=== PATIENT | female | born 1935 | race Caucasian/White ===

== ENCOUNTER 2017-06-28 07:29 | Emergency (ER) | payer OTHER ==
[~2017-06-28] VITALS: Ht 165.1 cm; Wt 65.0 kg
[~2017-06-28 07:29] MED LIST: ASPI81TA82 PO; COZA50TA PO; DONE5TAB14 PO; FISHOIL XX; HYDR-3533 PO; MEMA5 PO; MULT-65 PO; PANT20 PO; TRAM50 PO; XANA0.5T PO
[2017-06-28 07:31] VITALS: BP 198/88; PULSE 78; RESP 20; TEMP 97.3; O2SAT 97
[2017-06-28 07:53] VITALS: BP 178/88; PULSE 77; RESP 20; TEMP 97.9; O2SAT 98
[2017-06-28] MEDS ORDERED: ASPIRIN 81 MG CHEW TAB PO ONE (08:00)
[2017-06-28] MEDS ORDERED: SODIUM CHLORIDE 0.9% FLUSH 10 ML FLUSH IVF PRN (08:00)
[2017-06-28 08:21] VITALS: RESP 20; O2SAT 97
[2017-06-28 08:28] LABS: AUTOMATED NEUTROPHIL # 7.8 TH/MM3 (1.8-7.7); BASOPHIL % 0.5 % (0.0-2.0); EOSINOPHIL # 0.4 TH/MM3 (0-0.4); EOSINOPHIL % 3.9 % (0.0-4.0); HEMATOCRIT 38.3 % (35.0-46.0); HEMO FLAGS DIFF FINAL; LYMPH % 11.7 % (9.0-44.0); LYMPHOCYTE # 1.2 TH/MM3 (1.0-4.8); MEAN CELL VOLUME 92.7 FL (80.0-100.0); MEAN CORPUSCULAR HEMOGLOBIN 30.5 PG (27.0-34.0); MEAN CORPUSCULAR HGB CONC 32.9 % (32.0-36.0); MONO % 8.3 % (0.0-8.0); NEUT % 75.6 % (16.0-70.0); PLATELET COUNT 236 TH/MM3 (150-450); RED BLOOD COUNT 4.13 MIL/MM3 (4.00-5.30); RED CELL DISTRIBUTION WIDTH 13.3 % (11.6-17.2); WHITE BLOOD COUNT 10.3 TH/MM3 (4.0-11.0)
--- NOTE | 2017-06-28 08:28 | PD ---
HPI . Chest pain Chief Complaint: Chest Pain Time Seen by Provider: 08:00 Travel History International Travel<30 days: No Contact w/Intl Traveler<30days: No Traveled to known affect area: No History of Present Illness HPI This patient presents with a chief complaint of chest pain which was noted upon awakening this morning. This patient has dementia. Pain from the patient and from her . He states that she awaken this morning with chest pain and was crying. He subsequently brought her here for evaluation. The reports that it obviously hurts for her to move. Further history is not available because of her dementia. PFSH Past Medical History Hx Anticoagulant Therapy: Yes (BABY ASPIRING EVERY OTHER DAY (LAST 06/27)) Alzheimer's Disease: Yes Arthritis: Yes Heart Rhythm Problems: No Cancer: Yes (Breast) Cardiac Catheterization: No Cardiovascular Problems: No High Cholesterol: Yes Chest Pain: No Congestive Heart Failure: No Diabetes: No Endocrine: No Genitourinary: No Hypertension: Yes Musculoskeletal: Yes Neurologic: Yes (EARLY ONSET DEMENTIA) Reproductive: No Respiratory: No Radiation Therapy: Yes (Tx for breast ca, many yrs ago. ) Thyroid Disease: No ?: Not Menopausal: Yes Past Surgical History Appendectomy: Yes Cholecystectomy: Yes Coronary Artery Bypass Graft: No Gynecologic Surgery: Yes (LEFT LUMPECTOMY) Hysterectomy: Yes Pacemaker: No Other Surgery: Yes (LEFT LUMPECTOMY ) Social History Alcohol Use: No Tobacco Use: No Substance Use: No Allergies-Medications (Allergen,Severity, Reaction): Coded Allergies: Influenza Virus Vaccines (Unverified Allergy, Severe, 06/28/17) nefazodone (Unverified Allergy, Severe, SOB, 06/28/17) Reported Meds & Prescriptions Reported Meds & Active Scripts Active Lortab 5 mg/325 mg (Hydrocodone/Acetaminophen 5 mg/325 mg) 1 Tab 1 Tab PO Q6H PRN Reported Protonix (Pantoprazole Sodium) 20 Mg Tabdr 20 Mg PO BID Xanax 0.5 mg (Alprazolam) Alprazolam 0.5 mg Tab 1 Tab PO DAILY Donepezil 5 Mg Tab 5 Mg PO DAILY Multi-Vitamin Daily (Multivitamins) Daily Tab 1 PO Fish Oil Oil 1 Dose XX Ultram (Tramadol HCl) 50 Mg Tab 50 Mg PO DAILYPRN PRN FOR PAIN Cozaar (Losartan Potassium) 50 Mg Tab 25 Mg PO DAILY Namenda (Memantine) 5 Mg Tab 0 PO UNKNOWN DOSE Aspir-81 (Aspirin) 81 Mg Tab 81 Mg PO Review of Systems ROS Limitations: Poor Historian Physical Exam Narrative GENERAL: The patient is a pleasantly demented elderly woman who is smiling and in no distress. SKIN: Warm and dry. HEAD: Atraumatic. Normocephalic. EYES: Pupils equal and round. Extraocular movements are intact. ENT: No nasal bleeding or discharge. Mucous membranes pink and moist. NECK: Trachea midline. Neck is supple. CARDIOVASCULAR: Regular rate and rhythm. Heart sounds normal. RESPIRATORY: No accessory muscle use. Lungs are clear with full air movement throughout. Positive chest wall tenderness. GASTROINTESTINAL: Abdomen soft, non-tender, nondistended. MUSCULOSKELETAL: No obvious deformities. No edema. NEUROLOGICAL: Awake and alert. No obvious cranial nerve deficits. Motor grossly within normal limits. Normal speech. PSYCHIATRIC: Unable to assess. Data Data Last Documented VS Vital Signs Date Time Temp Pulse Resp B/P (MAP) Pulse Ox O2 Delivery O2 Flow Rate FiO2 06/28/17 08:21 20 97 Room Air 06/28/17 07:53 97.9 77 Orders Orders Electrocardiogram (06/28/17 08:00) Basic Metabolic Panel (Bmp) (06/28/17 08:00) Ckmb (Isoenzyme) Profile (06/28/17 08:00) Complete Blood Count With Diff (06/28/17 08:00) Magnesium (Mg) (06/28/17 08:00) Prothrombin Time / Inr (Pt) (06/28/17 08:00) Act Partial Throm Time (Ptt) (06/28/17 08:00) Troponin I (06/28/17 08:00) Chest, Single Ap (06/28/17 08:00) Ecg Monitoring (06/28/17 08:00) Iv Access Insert/Monitor (06/28/17 08:00) Oximetry (06/28/17 08:00) Aspirin Chew (Aspirin Chew) (06/28/17 08:00) Sodium Chloride 0.9% Flush (Ns Flush) (06/28/17 08:00) CKMB (06/28/17 08:12) CKMB% (06/28/17 08:12) Labs Laboratory Tests Test 06/28/17 08:12 White Blood Count 10.3 TH/MM3 Red Blood Count 4.13 MIL/MM3 Hemoglobin 12.6 GM/DL Hematocrit 38.3 % Mean Corpuscular Volume 92.7 FL Mean Corpuscular Hemoglobin 30.5 PG Mean Corpuscular Hemoglobin Concent 32.9 % Red Cell Distribution Width 13.3 % Platelet Count 236 TH/MM3 Mean Platelet Volume 7.8 FL Neutrophils (%) (Auto) 75.6 % Lymphocytes (%) (Auto) 11.7 % Monocytes (%) (Auto) 8.3 % Eosinophils (%) (Auto) 3.9 % Basophils (%) (Auto) 0.5 % Neutrophils # (Auto) 7.8 TH/MM3 Lymphocytes # (Auto) 1.2 TH/MM3 Monocytes # (Auto) 0.9 TH/MM3 Eosinophils # (Auto) 0.4 TH/MM3 Basophils # (Auto) 0.0 TH/MM3 CBC Comment DIFF FINAL Differential Comment Prothrombin Time 10.2 SEC Prothromb Time International Ratio 0.9 RATIO Activated Partial Thromboplast Time 29.4 SEC Blood Urea Nitrogen 12 MG/DL Creatinine 0.80 MG/DL Random Glucose 101 MG/DL Calcium Level 8.8 MG/DL Magnesium Level 2.2 MG/DL Sodium Level 140 MEQ/L Potassium Level 4.1 MEQ/L Chloride Level 105 MEQ/L Carbon Dioxide Level 28.4 MEQ/L Anion Gap 7 MEQ/L Estimat Glomerular Filtration Rate 69 ML/MIN Total Creatine Kinase 119 U/L Creatine Kinase MB 1.8 NG/ML Troponin I LESS THAN 0.02 NG/ML MDM Medical Decision Making Medical Screen Exam Complete: Yes Emergency Medical Condition: Yes Medical Record Reviewed: Yes (she had an exercise stress test done in 2011 which was negative. Her medical history is significant for dementia, breast cancer, hypertension and hyperlipidemia.) Interpretation(s) Her EKG shows a sinus rhythm with a rate of 71. No ST segment elevation or depression. Her EKG is unchanged from previous. Differential Diagnosis Differential diagnosis of chest pain includes but is not limited to musculoskeletal pain, pulmonary embolism, acute coronary syndrome, pneumonia, pleurisy Narrative Course This patient presents with chest pain. She has pain with movement and her pain is reproducible. I have a low index of suspicion for ACS. CBC & BMP Diagram 06/28/17 08:12 Calcium Level 8.8, Magnesium Level 2.2 Cardiac enzymes are negative. This patient clearly has chest wall pain. She will be discharged home. I will have her tried Tylenol for pain. Diagnosis Primary Impression: Chest wall pain Patient Instructions: General Instructions Additional Instructions: Tylenol as needed for pain Disposition: 01 DISCHARGE HOME Condition: Stable Juli Perkins MD Jun 28, 2017 08:28
[2017-06-28 08:38] LABS: APTT (PATIENT) 29.4 SEC (24.3-30.1); INTERNATIONAL NORMALIZED RATIO 0.9 RATIO; PROTHROMBIN TIME - PATIENT 10.2 SEC (9.8-11.6)
[2017-06-28 08:43] LABS: ANION GAP 7 MEQ/L (5-15); BICARBONATE 28.4 MEQ/L (21.0-32.0); BLOOD UREA NITROGEN 12 MG/DL (7-18); CHLORIDE 105 MEQ/L (98-107); GLOMERULAR FILTRATION RATE 69 ML/MIN (>89); MAGNESIUM 2.2 MG/DL (1.5-2.5); POTASSIUM 4.1 MEQ/L (3.5-5.1); SODIUM (NA) 140 MEQ/L (136-145)
--- NOTE | 2017-06-28 08:43 | RADRPT ---
EXAM DATE/TIME: 06/28/2017 08:26 [facility] COMPARISON: CHEST SINGLE AP, December 01, 2014, 18:04. INDICATIONS : Chest pains for 24 hours MEDICAL HISTORY : None. SURGICAL HISTORY : None. ENCOUNTER: Initial ACUITY: 1 day PAIN SCORE: 5/10 LOCATION: Bilateral chest FINDINGS: A single view of the chest demonstrates mild bibasilar infiltrates.. The cardiomediastinal contours are unremarkable stable. Osseous structures are intact. CONCLUSION: Mild bibasilar infiltrates. Jose Francisco Pastor MD on June 28, 2017 at 8:41 Board Certified Radiologist. This report was verified electronically.
[2017-06-28 08:47] LABS: CREATINE KINASE 119 U/L (26-192)
[2017-06-28 09:01] LABS: CKMB 1.8 NG/ML (0.5-3.6)
--- NOTE | 2017-06-28 15:30 | EKG ---
Date Performed: 06/28/2017 Time Performed: 07:59:06 PTAGE: 82 years EKG: Sinus rhythm MINIMAL VOLTAGE CRITERIA FOR LVH, CONSIDER NORMAL VARIANT BORDERLINE ECG PREVIOUS TRACING : 12/01/2014 17.31 Compared to prior tracing no significant change DOCTOR: Haris Mcintosh Interpretating Date/Time 06/28/2017 15:29:21
[2017-06-29] MEDS ORDERED: ASPI81CH CHEW (08:28)
[2017-06-29] MEDS ORDERED: PANT20TA2 PO (08:28)
[2017-06-29] MEDS ORDERED: LOSA25TA PO (08:28)
[2017-06-29] MEDS ORDERED: DONE5TAB7 PO (08:28)
[2017-06-29] MEDS ORDERED: ALPR.5 PO (08:28)
[2017-06-29] MEDS ORDERED: ZANT150T2 PO (08:28)
[2017-06-29] MEDS ORDERED: MEMA1TAB2 PO (08:28)
[2017-06-29] MEDS ORDERED: TRAM50TA PO (09:53)
== END 2017-06-28 09:56 | disposition home or self-care (01) ==
LOC: NEPE 07:29
DX: R07.89 Other chest pain (principal); I10 Essential (primary) hypertension; G30.9 Alzheimer's disease, unspecified; F02.80 Dementia in other diseases classified elsewhere, unspecified severity, without behavioral disturbance, psychotic disturbance, mood disturbance, and anxiety; Z79.899 Other long term (current) drug therapy; Z85.3 Personal history of malignant neoplasm of breast
CPT/HCPCS: 71010; 80048; 82550; 82552; 83735; 84484; 85025; 85610; 85730; 93005; 99285

== ENCOUNTER 2017-06-29 07:47 | Emergency (ER) | payer OTHER ==
[~2017-06-29] VITALS: Ht 162.6 cm; Wt 61.5 kg
[2017-06-29 07:50] VITALS: BP 201/91; PULSE 92; RESP 20; TEMP 97.8; O2SAT 97
[2017-06-29] MEDS ORDERED: ALPR.5 PO (08:28)
[2017-06-29] MEDS ORDERED: ASPI81CH CHEW (08:28)
[2017-06-29] MEDS ORDERED: DONE5TAB7 PO (08:28)
[2017-06-29] MEDS ORDERED: PANT20TA2 PO (08:28)
[2017-06-29] MEDS ORDERED: LOSA25TA PO (08:28)
[2017-06-29] MEDS ORDERED: ZANT150T2 PO (08:28)
[2017-06-29] MEDS ORDERED: MEMA1TAB2 PO (08:28)
--- NOTE | 2017-06-29 08:51 | RADRPT ---
EXAM DATE/TIME: 06/29/2017 08:35 [facility] COMPARISON: CHEST SINGLE AP, June 28, 2017, 8:26. INDICATIONS : Thoracic spine pain, denies injury MEDICAL HISTORY : None. SURGICAL HISTORY : None. ENCOUNTER: Initial ACUITY: 1 day PAIN SCORE: Non-responsive. LOCATION: Thoracic spine FINDINGS: There is diffuse osteopenia present. There is normal alignment of the thoracic vertebral bodies. Eh tebral body height is maintained. No evidence of fracture or subluxation. Pedicles are intact at al l levels. The paravertebral reflections are not thickened. CONCLUSION: Diffuse osteopenia. No visualized fracture.. Elsie Smith MD on June 29, 2017 at 8:49 Board Certified Radiologist. This report was verified electronically.
--- NOTE | 2017-06-29 09:00 | RADRPT ---
EXAM DATE/TIME: 06/29/2017 08:43 [facility] COMPARISON: CT ABDOMEN & PELVIS W/O CONTRAST, November 24, 2012, 17:40. INDICATIONS : Left flank pain today. ORAL CONTRAST: No oral contrast ingested. RADIATION DOSE: 11.32 CTDIvol (mGy) MEDICAL HISTORY : Carcinoma, breast. Dementia. SURGICAL HISTORY : Hysterectomy. Cholecystectomy.Appendectomy. ENCOUNTER: Initial ACUITY: 1 day PAIN SCALE: 7/10 LOCATION: Left flank TECHNIQUE: Volumetric scanning of the abdomen and pelvis was performed. Using automated exposure control and ad justment of the mA and/or kV according to patient size, radiation dose was kept as low as reasonably achievable to obtain optimal diagnostic quality images. DICOM format image data is available electro nically for review and comparison. FINDINGS: LOWER LUNGS: There is a small left-sided pleural effusion present. Moderate bilateral patchy airspace opacificatio n consistent with likely dependent atelectasis. The heart size is mildly enlarged, stable. There is a large hiatal hernia present. LIVER: Homogeneous density without lesion. There is no dilation of the biliary tree the patient is status p ost prior cholecystectomy. SPLEEN: Normal size without lesion. PANCREAS: Within normal limits. KIDNEYS: The kidneys are significant for bilateral large parapelvic cysts. There is a large 1.4 cm stone ident ified at the left UPJ. This has increased in size as compared to the prior exam. The renal cortex silverio ears normal in thickness and symmetric to that seen on the right. There is a punctate smaller stone i dentified in the upper pole of the left kidney. The ureters are normal throughout their course withou t distal obstructing stone. ADRENAL GLANDS: Within normal limits. VASCULAR: Scattered atherosclerosis. No evidence of hemorrhage. BOWEL/MESENTERY: The stomach, small bowel, and colon demonstrate no acute abnormality. There is no free intraperitone al air or fluid. ABDOMINAL WALL: Within normal limits. RETROPERITONEUM: There is no lymphadenopathy. BLADDER: No wall thickening or mass. REPRODUCTIVE: The patient is status post prior hysterectomy. INGUINAL: There is no lymphadenopathy or hernia. MUSCULOSKELETAL: Scoliosis and multilevel degenerative changes of the lumbar spine. CONCLUSION: 1.There is a new small left-sided pleural effusion and patchy airspace opacities within the bilateral lower lobes suggestive of significant dependent atelectasis versus early air space consolidation sec ondary to pneumonia. 2. There is a large hiatal hernia present. 3. Enlarging left renal stone at the level of the UPJ. Given the appearance of the left kidney this m ay represent a chronic left UPJ obstruction Elsie Smith MD on June 29, 2017 at 8:51 Board Certified Radiologist. This report was verified electronically.
[2017-06-29 09:37] LABS: BLOOD, URINE MOD (NEG); GLUCOSE,URINE NEG (NEG); KETONE, URINE 10 mg/dL (NEG); MUCUS URINE FEW /lpf (OCC); NITRITE,URINE NEG (NEG); PH, URINE 5.5 (5.0-8.5); URINE COLOR YELLOW (YELLW/STRAW)
[2017-06-29 09:40] LABS: COMMENT (UR) CATH-CULT NOT IND; CULTURE IF INDICATED CATH CULTURE NOT IND
[2017-06-29] MEDS ORDERED: TRAM50TA PO (09:53)
--- NOTE | 2017-06-29 09:53 | PD ---
HPI Chief Complaint: Flank/Kidney Pain Time Seen by Provider: 08:24 Travel History International Travel<30 days: No Contact w/Intl Traveler<30days: No Traveled to known affect area: No History of Present Illness HPI This is an 82-year-old female who presents to the emergency department with 2 days of intermittent left-sided flank pain, sharp, stabbing, moderate severity waking her up in the middle the night with her finding her in tears. She has not had any fevers or chills, vomiting or diarrhea. She has dementia so most of her history is obtained from her . She has a history of kidney stones. Her says that back in 2012 she had a kidney stone and she had a stent put in and then she had lithotripsy. He is not sure what the result of all this procedures were. She follows with Dr. Castaneda currently. PFSH Past Medical History Hx Anticoagulant Therapy: Yes (BABY ASPIRING EVERY OTHER DAY (LAST 06/27)) Alzheimer's Disease: Yes Arthritis: Yes Heart Rhythm Problems: No Cancer: Yes (Breast) Cardiac Catheterization: No Cardiovascular Problems: No High Cholesterol: Yes Chest Pain: No Congestive Heart Failure: No Diabetes: Yes Patient Takes Glucophage: No Endocrine: No Genitourinary: No Hypertension: Yes Musculoskeletal: Yes Neurologic: Yes (EARLY ONSET DEMENTIA) Reproductive: No Respiratory: No Radiation Therapy: Yes (Tx for breast ca, many yrs ago. ) Thyroid Disease: No Menopausal: Yes Past Surgical History Appendectomy: Yes Cholecystectomy: Yes Coronary Artery Bypass Graft: No Gynecologic Surgery: Yes (LEFT LUMPECTOMY) Hysterectomy: Yes Pacemaker: No Other Surgery: Yes (LEFT LUMPECTOMY ) Social History Alcohol Use: No Tobacco Use: No Substance Use: No Allergies-Medications (Allergen,Severity, Reaction): Coded Allergies: Influenza Virus Vaccines (Unverified Allergy, Severe, 06/29/17) nefazodone (Unverified Allergy, Severe, SOB, 06/29/17) Reported Meds & Prescriptions Reported Meds & Active Scripts Active Reported Zantac (Ranitidine HCl) 150 Mg Tab 150 Mg PO DAILY Xanax (Alprazolam) 0.5 Mg Tab 0.5 Mg PO Q8H PRN Pantoprazole (Pantoprazole Sodium) 20 Mg Tab 20 Mg PO DAILY Aspirin 81 Mg Chew 81 Mg CHEW DAILY Donepezil 5 Mg Tab 5 Mg PO HS Memantine 10 Mg Tab 10 Mg PO DAILY Losartan (Losartan Potassium) 25 Mg Tab 25 Mg PO DAILY Losartan (Losartan Potassium) 25 Mg Tab 25 Mg PO DAILY Review of Systems Except as stated in HPI: all other systems reviewed are Neg Physical Exam Narrative GENERAL:Well appearing, no acute distress SKIN: Focused skin assessment warm and dry. HEAD: Atraumatic. Normocephalic. EYES: Pupils equal and round. No injection or drainage. ENT: Moist mucous membranes NECK: Trachea midline. CARDIOVASCULAR: Regular rate and rhythm. No murmur appreciated. RESPIRATORY: Clear to auscultation. Breath sounds equal bilaterally. GASTROINTESTINAL: Abdomen soft, non-tender, nondistended. : Left CVA tenderness MUSCULOSKELETAL: No obvious deformities. NEUROLOGICAL: Awake and alert. No obvious cranial nerve deficits. Moving all extremities. PSYCHIATRIC: Appropriate mood and affect; insight and judgment normal. Data Data Last Documented VS Vital Signs Date Time Temp Pulse Resp B/P (MAP) Pulse Ox O2 Delivery O2 Flow Rate FiO2 06/29/17 07:50 97.8 92 20 201/91 (127) 97 Room Air Orders Orders Lipase (06/29/17 08:24) Urinalysis - C+S If Indicated (06/29/17 08:24) Cath For Specimen (06/29/17 08:24) Ct Abd/Pel W/O Iv Contrast (06/29/17 ) Spine, Thoracic-Ap/Lat/Sw(3vw) (06/29/17 ) Labs Laboratory Tests Test 06/29/17 08:15 06/29/17 09:25 Lipase 146 U/L Urine Color YELLOW Urine Turbidity CLEAR Urine pH 5.5 Urine Specific [place] 1.020 Urine Protein TRACE mg/dL Urine Glucose (UA) NEG mg/dL Urine Ketones 10 mg/dL Urine Occult Blood MOD Urine Nitrite NEG Urine Bilirubin NEG Urine Urobilinogen LESS THAN 2.0 MG/DL Urine Leukocyte Esterase TRACE Urine RBC 30 /hpf Urine WBC 5 /hpf Urine Mucus FEW /lpf Microscopic Urinalysis Comment CATH-CULT NOT IND MDM Medical Decision Making Medical Screen Exam Complete: Yes Emergency Medical Condition: Yes Interpretation(s) Afebrile, mild tachycardia, hypertensive Lipase is normal Urinalysis: 30 red blood cells Last 24 hours Impressions Thoracic Spine X-Ray 06/29/17 0000 Signed Impressions: Service Date/Time: Thursday, June 29, 2017 08:35 - CONCLUSION: Diffuse osteopenia. No visualized fracture.. Elsie Smith MD Abdomen/Pelvis CT 06/29/17 0000 Signed Impressions: Service Date/Time: Thursday, June 29, 2017 08:43 - CONCLUSION: 1.There is a new small left-sided pleural effusion and patchy airspace opacities within the bilateral lower lobes suggestive of significant dependent atelectasis versus early air space consolidation secondary to pneumonia. 2. There is a large hiatal hernia present. 3. Enlarging left renal stone at the level of the UPJ. Given the appearance of the left kidney this may represent a chronic left UPJ obstruction Elsie Smith MD Differential Diagnosis Nephrolithiasis, hydronephrosis, pyelonephritis, shingles, pneumonia Narrative Course This is an 82-year-old female who presents to the emergency department with left -sided flank pain. Back in 2012 she had a 1 cm stone at the UPJ on the left with associated hydronephrosis. At this time the patient's tells me she had a stent put in and she had lithotripsy. Today she has a 1.4 cm stone at the same location. I suspect this is the same stone but I also suspect that this is giving her more discomfort. Her pain is episodic, she has no cough or fever to suggest pneumonia. I think the hydronephrosis as the etiology of her pain. I spoke to Dr. Aguilera and he agrees she can follow-up with Dr. Castaneda as an outpatient. She appears very well in the emergency department. Patient will be discharged with pain control and was asked to call Dr. Castaneda on Friday. Diagnosis Primary Impression: Hydronephrosis with renal calculous obstruction Patient Instructions: General Instructions Additional Instructions: If you develop severe pain, inability to eat or drink, or fever return to the emergency department. Take tramadol as needed for pain. Follow up with urology as soon as possible. Med/Other Pt SpecificInfo: Prescription(s) given Scripts Tramadol (Tramadol) 50 Mg Tab 50 MG PO Q6H Y for PAIN, #15 TAB 0 Refills Prov: Kristina Jeff MD 06/29/17 Disposition: 01 DISCHARGE HOME Condition: Stable Kristina Jeff MD Jun 29, 2017 09:53
[2017-06-29 10:02] VITALS: BP 150/74; PULSE 91; RESP 18; O2SAT 95
== END 2017-06-29 10:32 | disposition home or self-care (01) ==
LOC: NEPC 07:47
DX: N13.2 Hydronephrosis with renal and ureteral calculous obstruction (principal); G30.9 Alzheimer's disease, unspecified; F02.80 Dementia in other diseases classified elsewhere, unspecified severity, without behavioral disturbance, psychotic disturbance, mood disturbance, and anxiety; I10 Essential (primary) hypertension; E11.9 Type 2 diabetes mellitus without complications; E78.00 Pure hypercholesterolemia, unspecified; M19.90 Unspecified osteoarthritis, unspecified site
CPT/HCPCS: 72072; 74176; 81001; 83690; 99284; P9612

== ENCOUNTER 2017-12-15 02:46 | Emergency (ER) | payer OTHER ==
[~2017-12-15] VITALS: Ht 162.6 cm; Wt 59.1 kg
[~2017-12-15 02:46] MED LIST changes: +ALPR.5 PO; +ASPI-516 CHEW; -ASPI81TA82 PO; -COZA50TA PO; -DONE5TAB14 PO; +DONE5TAB7 PO; -FISHOIL XX; -HYDR-3533 PO; +LOSA25TA PO; +MEMA1TAB2 PO; -MEMA5 PO; -MULT-65 PO; -PANT20 PO; +PANT20TA2 PO; -TRAM50 PO; +TRAM50TA PO; -XANA0.5T PO; +ZANT150T2 PO
[2017-12-15 02:48] VITALS: BP 215/96; PULSE 97; RESP 20; TEMP 98.2; O2SAT 100
--- NOTE | 2017-12-15 03:50 | RADRPT ---
EXAM DATE/TIME: 12/15/2017 03:31 [facility] COMPARISON: No previous studies available for comparison. INDICATIONS : Fall yesterday pain in left wrist. MEDICAL HISTORY : None. SURGICAL HISTORY : None. ENCOUNTER: Initial ACUITY: 1 day PAIN SCORE: 5/10 LOCATION: Left wrist FINDINGS: The bone density is diminished. There are degenerative changes of the thumb basal joint and scaphoid trapezium articulations. Chondrocalcinosis. CONCLUSION: No acute disease. Ronny Hartman MD on December 15, 2017 at 3:48 Board Certified Radiologist. This report was verified electronically.
--- NOTE | 2017-12-15 03:51 | RADRPT ---
EXAM DATE/TIME: 12/15/2017 03:38 [facility] COMPARISON: CT BRAIN W/O CONTRAST, July 14, 2014, 13:44. INDICATIONS : Trauma, fall. RADIATION DOSE: 29.34 CTDIvol (mGy) MEDICAL HISTORY : Hypertension. Alzheimer's. Breast cancer. SURGICAL HISTORY : Appendectomy. Cholecystectomy.Hysterectomy. ENCOUNTER: Initial ACUITY: 1 day PAIN SCALE: 2/10 LOCATION: cranial TECHNIQUE: Multiple contiguous axial images were obtained of the head. Using automated exposure control and adj ustment of the mA and/or kV according to patient size, radiation dose was kept as low as reasonably a chievable to obtain optimal diagnostic quality images. DICOM format image data is available electro nically for review and comparison. 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 No signs of acute infarct, hemorrh age or mass. Osseous structures are intact. CONCLUSION: No significant change has occurred. Ronny Hartman MD on December 15, 2017 at 3:48 Board Certified Radiologist. This report was verified electronically.
--- NOTE | 2017-12-15 03:53 | RADRPT ---
EXAM DATE/TIME: 12/15/2017 03:38 [facility] COMPARISON: No previous studies available for comparison. INDICATIONS : Trauma, fall. RADIATION DOSE: 19.91 CTDIvol (mGy) MEDICAL HISTORY : Alzheimer's Hypertension. Breast cancer. SURGICAL HISTORY : Hysterectomy. Appendectomy.Cholecystectomy. ENCOUNTER: Initial ACUITY: 1 day PAIN SCALE: 2/10 LOCATION: neck TECHNIQUE: Volumetric scanning of the cervical spine was performed. Multiplanar reconstructions in the sagittal, coronal and oblique axial planes were performed. Using automated exposure control and adjustment o f the mA and/or kV according to patient size, radiation dose was kept as low as reasonably achievable to obtain optimal diagnostic quality images. DICOM format image data is available electronically f or review and comparison. FINDINGS: Slight retrolisthesis of C4 on C5 and C5 on C6. Mild disc space narrowing and multilevel uncovertebra l hypertrophy. No prevertebral soft tissue swelling or compression deformity. Odontoid process is int act. CONCLUSION: No fractures. Ronny Hartman MD on December 15, 2017 at 3:49 Board Certified Radiologist. This report was verified electronically.
--- NOTE | 2017-12-15 03:57 | PD ---
HPI Chief Complaint: Fall Time Seen by Provider: 03:56 Travel History International Travel<30 days: No Contact w/Intl Traveler<30days: No Traveled to known affect area: No History of Present Illness HPI 82-year-old female came to the emergency room brought by her after she fell yesterday afternoon. Her found her on the floor. He did not witness the actual event but she was screaming in pain. Patient has history of Alzheimer's. Scraped her left knee. Afterwards she was able to stand up with his support and walk and he did not think of bringing her into the hospital immediately. But she has been complaining of pain in her right wrist and nursing it. He brought her in to be checked out. There was x-ray and CAT scan done prior to her arrival into the emergency room. When I went to see her the CT scan and x-ray reports were back. This pleasantly demented and does not appear to be in significant distress currently. However she is holding her left wrist with her right arm. Vital signs show some hypertension. I asked the nurse to reassess that. PFSH Past Medical History Narrative Medical List of her past medical, surgical, social and family history is reviewed from the nursing note. Hx Anticoagulant Therapy: Yes (BABY ASPIRING EVERY OTHER DAY (LAST 06/27)) Alzheimer's Disease: Yes Arthritis: Yes Heart Rhythm Problems: No Cancer: Yes (Breast) Cardiac Catheterization: No Cardiovascular Problems: No High Cholesterol: Yes Chest Pain: No Congestive Heart Failure: No Diabetes: Yes Patient Takes Glucophage: No Endocrine: No Genitourinary: No Hypertension: Yes Musculoskeletal: Yes Neurologic: Yes (EARLY ONSET DEMENTIA/alzheimers) Reproductive: No Respiratory: No Radiation Therapy: Yes (Tx for breast ca, many yrs ago. ) Thyroid Disease: No Tetanus Vaccination: Unknown Menopausal: Yes Past Surgical History Appendectomy: Yes Cholecystectomy: Yes Coronary Artery Bypass Graft: No Gynecologic Surgery: Yes (LEFT LUMPECTOMY) Hysterectomy: Yes Pacemaker: No Other Surgery: Yes (LEFT LUMPECTOMY ) Social History Alcohol Use: No Tobacco Use: No Substance Use: No Allergies-Medications (Allergen,Severity, Reaction): Coded Allergies: Influenza Virus Vaccines (Unverified Allergy, Severe, 06/29/17) nefazodone (Unverified Allergy, Severe, SOB, 06/29/17) Comments List of allergies reviewed from the nursing note. Reported Meds & Prescriptions Reported Meds & Active Scripts Active Ibuprofen 400 Mg Tab 400 Mg PO Q8H PRN Reported Multiple Vitamin 1 Tab 1 Tab PO DAILY Amlodipine (Amlodipine Besylate) 2.5 Mg Tab 2.5 Mg PO DAILY Epitol (Carbamazepine) 200 Mg Tab 200 Mg PO BID Zantac (Ranitidine HCl) 150 Mg Tab 150 Mg PO DAILY Xanax (Alprazolam) 0.5 Mg Tab 0.5 Mg PO Q8H PRN Aspirin 81 Mg Chew 81 Mg CHEW DAILY Donepezil 5 Mg Tab 5 Mg PO HS Memantine 10 Mg Tab 10 Mg PO DAILY Losartan (Losartan Potassium) 25 Mg Tab 25 Mg PO DAILY Narrative Medication List of her home medications reviewed from the nursing note. Review of Systems Except as stated in HPI: all other systems reviewed are Neg Musculoskeletal: Positive: Pain Physical Exam Narrative GENERAL: Awake, alert, pleasantly demented, elderly SKIN: Focused skin assessment warm/dry. Healing abrasion of the left knee HEAD: Atraumatic. Normocephalic. EYES: Pupils equal and round. No scleral icterus. No injection or drainage. ENT: No nasal bleeding or discharge. Mucous membranes pink and moist. NECK: Trachea midline. No JVD. CARDIOVASCULAR: Regular rate and rhythm. No murmur appreciated. RESPIRATORY: No accessory muscle use. Clear to auscultation. Breath sounds equal bilaterally. GASTROINTESTINAL: Abdomen soft, non-tender, nondistended. Hepatic and splenic margins not palpable. MUSCULOSKELETAL: Left wrist is swollen, tender to touch and decreased range of motion. No clubbing. No cyanosis. No edema. NEUROLOGICAL: Awake and alert. No obvious cranial nerve deficits. Motor grossly within normal limits. Normal speech. PSYCHIATRIC: Appropriate mood and affect; insight and judgment normal. Data Data Last Documented VS Vital Signs Date Time Temp Pulse Resp B/P (MAP) Pulse Ox O2 Delivery O2 Flow Rate FiO2 12/15/17 04:21 12/15/17 02:48 98.2 97 20 100 Orders Orders Wrist, Complete (Hht2fjs) (12/15/17 ) Ct Cerv Spine W/O Contrast (12/15/17 ) Ct Brain W/O Iv Contrast(Rout) (12/15/17 ) Splinting (12/15/17 ) Ibuprofen (Motrin) (12/15/17 04:15) Ed Discharge Order (12/15/17 04:14) Fiberglass Splint Forearm Adul (12/15/17 ) [facility] Medical Decision Making Medical Screen Exam Complete: Yes Emergency Medical Condition: Yes Medical Record Reviewed: Yes Differential Diagnosis Wrist fracture, wrist contusion Narrative Course 4:11 AM the x-ray and the CAT scan's were read negative by the radiologist. However clinically the wrist does appear like there might be a subtle fracture. I looked at the x-ray myself. Patient has significant osteopenia and could miss a subtle fracture. I have decided to splint her wrist and then sent her home. I have asked the to follow up with the primary care. Patient will be given some Motrin for the pain. Procedures EKG Prior to Arrival: No Diagnosis Primary Impression: Fall Qualified Codes: W19.XXXA - Unspecified fall, initial encounter Additional Impression: Wrist sprain Qualified Codes: S63.502A - Unspecified sprain of left wrist, initial encounter Referrals: Primary Care Physician 3 days Additional Instructions: Keep the splint clean and dry. Give the medication as per the prescription direction. Return to ER if condition worsens or any other new concerns. Her primary care physician should get a repeat x-ray in 4-5 days. If the repeat x- ray does not show any fractures than the splint can come out. Med/Other Pt SpecificInfo: Prescription(s) given Scripts Ibuprofen (Ibuprofen) 400 Mg Tab 400 MG PO Q8H Y for PAIN SCALE 1 TO 4, #20 TAB 0 Refills Prov: Rebel Pugh MD 12/15/17 Disposition: 01 DISCHARGE HOME Condition: Stable Rebel Pugh MD Dec 15, 2017 03:57
[2017-12-15] MEDS ORDERED: EPIT200T PO (04:02)
[2017-12-15] MEDS ORDERED: AMLO2.5T PO (04:02)
[2017-12-15] MEDS ORDERED: MULTTAB67 PO (04:02)
[2017-12-15 04:14] VITALS: BP 165/79
[2017-12-15] MEDS ORDERED: IBUP1TAB5 PO (04:14)
[2017-12-15] MEDS ORDERED: IBUPROFEN 400 MG TAB PO ONE (04:15)
== END 2017-12-15 05:41 | disposition home or self-care (01) ==
LOC: NEPC 02:46
DX: S63.502A Unspecified sprain of left wrist, initial encounter (principal); G30.9 Alzheimer's disease, unspecified; I10 Essential (primary) hypertension; E78.00 Pure hypercholesterolemia, unspecified; E11.9 Type 2 diabetes mellitus without complications; W19.XXXA Unspecified fall, initial encounter; Z85.3 Personal history of malignant neoplasm of breast; Z88.8 Allergy status to other drugs, medicaments and biological substances; Z79.82 Long term (current) use of aspirin; Z79.899 Other long term (current) drug therapy
CPT/HCPCS: 29125; 70450; 72125; 73110

== ENCOUNTER 2018-02-01 17:41 | Inpatient (IN) | payer OTHER, MEDICARE ==
[~2018-02-01] VITALS: Ht 157.5 cm; Wt 63.9 kg
[~2018-02-01 17:41] MED LIST changes: +AMLO2.5T PO; +EPIT200T PO; +IBUP1TAB5 PO; +MULTTAB67 PO; -PANT20TA2 PO; -TRAM50TA PO
[2018-02-01 17:43] VITALS: BP 188/88; PULSE 99; RESP 17; TEMP 97.6; O2SAT 97
--- NOTE | 2018-02-01 18:04 | PD ---
HPI Chief Complaint: Abdominal Pain Time Seen by Provider: 17:55 Travel History International Travel<30 days: No Contact w/Intl Traveler<30days: No Traveled to known affect area: No History of Present Illness HPI Patient comes emergency department for evaluation of vomiting abdominal pain that began yesterday. Patient has Alzheimer's and is a poor historian thus limiting H&P. Patient's significant other reports that she began vomiting last night has continued today. States she was complaining of abdominal pain and was reportedly found to be tender left lower quadrant at the urgent care was sent to the emergency department for further treatment evaluation. Patient's reports that she had ate some chocolate yesterday and vomited dark emesis last night. reports vomit today has been dark brown. Patient denies any pain anywhere. Denies anything making symptoms better or worse. PFSH Past Medical History Hx Anticoagulant Therapy: Yes (BABY ASPIRING EVERY OTHER DAY (LAST 06/27)) Alzheimer's Disease: Yes Arthritis: Yes Heart Rhythm Problems: No Cancer: Yes (Breast) Cardiac Catheterization: No Cardiovascular Problems: No High Cholesterol: Yes Chest Pain: No Congestive Heart Failure: No Diabetes: Yes Patient Takes Glucophage: No Endocrine: No Genitourinary: No Hypertension: Yes Musculoskeletal: Yes Neurologic: Yes (EARLY ONSET DEMENTIA/alzheimers) Reproductive: No Respiratory: No Radiation Therapy: Yes (Tx for breast ca, many yrs ago. ) Thyroid Disease: No Menopausal: Yes Past Surgical History Appendectomy: Yes Cholecystectomy: Yes Coronary Artery Bypass Graft: No Gynecologic Surgery: Yes (LEFT LUMPECTOMY) Hysterectomy: Yes Pacemaker: No Other Surgery: Yes (LEFT LUMPECTOMY ) Social History Alcohol Use: No Tobacco Use: No Substance Use: No Allergies-Medications (Allergen,Severity, Reaction): Coded Allergies: Influenza Virus Vaccines (Unverified Allergy, Severe, 02/01/18) nefazodone (Unverified Allergy, Severe, SOB, 02/01/18) Reported Meds & Prescriptions Reported Meds & Active Scripts Active Ibuprofen 400 Mg Tab 400 Mg PO Q8H PRN Reported Multiple Vitamin 1 Tab 1 Tab PO DAILY Amlodipine (Amlodipine Besylate) 2.5 Mg Tab 2.5 Mg PO DAILY Epitol (Carbamazepine) 200 Mg Tab 200 Mg PO BID Zantac (Ranitidine HCl) 150 Mg Tab 150 Mg PO DAILY Xanax (Alprazolam) 0.5 Mg Tab 0.5 Mg PO Q8H PRN Aspirin 81 Mg Chew 81 Mg CHEW DAILY Donepezil 5 Mg Tab 5 Mg PO HS Memantine 10 Mg Tab 10 Mg PO DAILY Losartan (Losartan Potassium) 25 Mg Tab 25 Mg PO DAILY Review of Systems ROS Limitations: Poor Historian Except as stated in HPI: all other systems reviewed are Neg Physical Exam Exam Limitations: Poor Historian Narrative GENERAL: Well-developed, overly nourished, in no acute distress, and non-ill appearing. Smiling and cheerful on exam. SKIN: Focused skin assessment warm and dry. HEAD: Atraumatic. Normocephalic. EYES: Pupils equal and round. EOMI. No scleral icterus. No injection or drainage. ENT: No nasal bleeding or discharge. Mucous membranes pink and moist. NECK: Trachea midline. Supple. No nuclear rigidity. CARDIOVASCULAR: Regular rate and rhythm. No murmur appreciated. RESPIRATORY: No accessory muscle use. No respiratory distress. Clear to auscultation. Breath sounds equal bilaterally. GASTROINTESTINAL: Abdomen firm, non-tender, distended, and no guarding. Hepatic and splenic margins not palpable. Hypoactive normal bowel sounds x4. No pulsatile mass. MUSCULOSKELETAL: No obvious deformities. No clubbing. No cyanosis. No edema. Full range of motion. NEUROLOGICAL: Awake and alert. No obvious cranial nerve deficits. Motor grossly within normal limits. Normal speech. Data Data Last Documented VS Vital Signs Date Time Temp Pulse Resp B/P (MAP) Pulse Ox O2 Delivery O2 Flow Rate FiO2 02/01/18 18:51 95 16 97 Room Air 02/01/18 17:43 97.6 188/88 (121) Orders Orders Complete Blood Count With Diff (02/01/18 18:02) Comprehensive Metabolic Panel (02/01/18 18:02) Lipase (02/01/18 18:02) Prothrombin Time / Inr (Pt) (02/01/18 18:02) Act Partial Throm Time (Ptt) (02/01/18 18:02) Urinalysis - C+S If Indicated (02/01/18 18:02) Ecg Monitoring (02/01/18 18:02) Iv Access Insert/Monitor (02/01/18 18:02) Oximetry (02/01/18 18:02) Ondansetron Inj (Zofran Inj) (02/01/18 18:15) Sodium Chloride 0.9% Flush (Ns Flush) (02/01/18 18:15) Famotidine Inj (Pepcid Inj) (02/01/18 18:15) Ct Abd/Pel W Iv Contrast(Rout) (02/01/18 18:09) Pantoprazole Inj (Protonix Inj) (02/01/18 18:30) Influenzae A/B Antigen (02/01/18 18:47) Chest, Single Ap (02/01/18 ) Iohexol 350 Inj (Omnipaque 350 Inj) (02/01/18 19:27) Admit Order (Ed Use Only) (02/01/18 ) Vital Signs (Adult) Q4H (02/01/18 19:57) Activity Oob With Assistance (02/01/18 19:57) Notify Dr: Other (02/01/18 19:57) Labs Laboratory Tests Test 02/01/18 18:11 White Blood Count 14.8 TH/MM3 Red Blood Count 4.69 MIL/MM3 Hemoglobin 14.5 GM/DL Hematocrit 43.5 % Mean Corpuscular Volume 92.6 FL Mean Corpuscular Hemoglobin 30.8 PG Mean Corpuscular Hemoglobin Concent 33.3 % Red Cell Distribution Width 13.2 % Platelet Count 303 TH/MM3 Mean Platelet Volume 7.7 FL Neutrophils (%) (Auto) 86.4 % Lymphocytes (%) (Auto) 5.4 % Monocytes (%) (Auto) 7.4 % Eosinophils (%) (Auto) 0.5 % Basophils (%) (Auto) 0.3 % Neutrophils # (Auto) 12.8 TH/MM3 Lymphocytes # (Auto) 0.8 TH/MM3 Monocytes # (Auto) 1.1 TH/MM3 Eosinophils # (Auto) 0.1 TH/MM3 Basophils # (Auto) 0.0 TH/MM3 CBC Comment DIFF FINAL Differential Comment Prothrombin Time 9.9 SEC Prothromb Time International Ratio 1.0 RATIO Activated Partial Thromboplast Time 24.6 SEC Blood Urea Nitrogen 13 MG/DL Creatinine 1.07 MG/DL Random Glucose 141 MG/DL Total Protein 8.5 GM/DL Albumin 3.8 GM/DL Calcium Level 9.4 MG/DL Alkaline Phosphatase 142 U/L Aspartate Amino Transf (AST/SGOT) 31 U/L Alanine Aminotransferase (ALT/SGPT) 46 U/L Total Bilirubin 0.4 MG/DL Sodium Level 138 MEQ/L Potassium Level 3.9 MEQ/L Chloride Level 101 MEQ/L Carbon Dioxide Level 27.2 MEQ/L Anion Gap 10 MEQ/L Estimat Glomerular Filtration Rate 49 ML/MIN Lipase 417 U/L MDM Medical Decision Making Medical Screen Exam Complete: Yes Emergency Medical Condition: Yes Interpretation(s) Last Impressions Abdomen/Pelvis CT 02/01/18 1809 Signed Impressions: Service Date/Time: Thursday, February 01, 2018 19:12 - CONCLUSION: Abnormal dilated loops of small bowel with relatively decompressed distal small bowel and colon characteristic of at least partial small bowel obstruction. Ronny Hartman MD Chest X-Ray 02/01/18 0000 Signed Impressions: Service Date/Time: Thursday, February 01, 2018 18:52 - CONCLUSION: No acute disease. Ronny Hartman MD Differential Diagnosis Diverticulitis, ileus, small bowel obstruction, necrotic bowel, influenza, UTI, metabolic disturbance, mass Narrative Course Patient was seen and examined. Initial laboratory and radiological studies were ordered. IV was established and patient was placed on continuous cardiac monitors. Patient was given Zofran for nausea along with Pepcid and Prilosec IV for gastritis. Discussed patient with Dr. Clifton, who is in agreement plan of care and disposition. After reviewing CT results, patient was admitted to hospitalist for SBO. Discussed all findings and plan of care with the patient and her family. Patient and family is agreeable for patient to be admitted. All questions were answered. Discussed patient with hospitalist who is agreeable to admit the patient. Patient remained stable throughout ED. [facility] Point of Care Internal Pos. & Neg. Controls: Passed Fecal Specimen Occult Blood: Negative Gastric Specimen Occult Blood: Negative Comment Verbal consent was obtained. Digital rectal exam was performed. Stool specimen applied and test interpreted between 1 and 3 minutes of application and the result was negative. Internal Controls: Both positive and negative controls were validated. operations technician Mike was present during this exam. Physician Communication Physician Communication [address] Gautam, who is agreeable to admit the patient. Diagnosis Primary Impression: SBO (small bowel obstruction) Admitting Information Admitting Physician Requests: Admit Condition: Stable Colby Reyna Feb 01, 2018 18:04
[2018-02-01] MEDS ORDERED: SODIUM CHLORIDE 0.9% FLUSH 10 ML FLUSH IVF PRN (18:15)
[2018-02-01] MEDS ORDERED: ONDANSETRON HCL 4 MG/2 ML VIAL IVP ONE (18:15)
[2018-02-01] MEDS ORDERED: FAMOTIDINE 20 MG/2 ML VIAL IV PUSH ONE (18:15)
[2018-02-01 18:19] LABS: AUTOMATED NEUTROPHIL # 12.8 TH/MM3 (1.8-7.7); BASOPHIL % 0.3 % (0.0-2.0); EOSINOPHIL # 0.1 TH/MM3 (0-0.4); EOSINOPHIL % 0.5 % (0.0-4.0); HEMATOCRIT 43.5 % (35.0-46.0); HEMOGLOBIN 14.5 GM/DL (11.6-15.3); LYMPH % 5.4 % (9.0-44.0); LYMPHOCYTE # 0.8 TH/MM3 (1.0-4.8); MEAN CELL VOLUME 92.6 FL (80.0-100.0); MEAN CORPUSCULAR HEMOGLOBIN 30.8 PG (27.0-34.0); MEAN CORPUSCULAR HGB CONC 33.3 % (32.0-36.0); MEAN PLATELET VOLUME 7.7 FL (7.0-11.0); MONO % 7.4 % (0.0-8.0); MONOCYTE # 1.1 TH/MM3 (0-0.9); NEUT % 86.4 % (16.0-70.0); PLATELET COUNT 303 TH/MM3 (150-450); RED BLOOD COUNT 4.69 MIL/MM3 (4.00-5.30); RED CELL DISTRIBUTION WIDTH 13.2 % (11.6-17.2); WHITE BLOOD COUNT 14.8 TH/MM3 (4.0-11.0)
[2018-02-01 18:28] LABS: PROTHROMBIN TIME - PATIENT 9.9 SEC (9.8-11.6)
[2018-02-01] MEDS ORDERED: PANTOPRAZOLE SODIUM 40 MG VIAL IVP ONE (18:30)
[2018-02-01 18:49] LABS: ALBUMIN 3.8 GM/DL (3.4-5.0); AST (GOT) 31 U/L (15-37); BICARBONATE 27.2 MEQ/L (21.0-32.0); BLOOD UREA NITROGEN 13 MG/DL (7-18); CALCIUM 9.4 MG/DL (8.5-10.1); CHLORIDE 101 MEQ/L (98-107); CREATININE 1.07 MG/DL (0.50-1.00); GLOMERULAR FILTRATION RATE 49 ML/MIN (>89); GLUCOSE,RANDOM 141 MG/DL (74-106); SODIUM (NA) 138 MEQ/L (136-145)
[2018-02-01 18:50] LABS: ALT (GPT) 46 U/L (10-53)
[2018-02-01 18:51] VITALS: PULSE 95; RESP 16; O2SAT 97
[2018-02-01 18:53] LABS: ALKALINE PHOSPHATASE 142 U/L (45-117); TOTAL BILIRUBIN ADULT 0.4 MG/DL (0.2-1.0); TOTAL PROTEIN 8.5 GM/DL (6.4-8.2)
--- NOTE | 2018-02-01 19:12 | RADRPT ---
EXAM DATE/TIME: 02/01/2018 18:52 [facility] COMPARISON: CT ABDOMEN & PELVIS W/O CONTRAST, June 29, 2017, 8:43. CHEST SINGLE AP, June 28, 2017, 8:26. INDICATIONS : Vomiting MEDICAL HISTORY : Ulcerative colitis. Hypertension. Alzheimer's. breast cancer SURGICAL HISTORY : Appendectomy. Cholecystectomy.Hysterectomy ENCOUNTER: Initial ACUITY: 1 day PAIN SCORE: 0/10 LOCATION: chest FINDINGS: Retrocardiac hiatal hernia. Cardiomegaly. Hyperinflation. Lungs are clear. Osseous structures are int act. CONCLUSION: No acute disease. Ronny Hartman MD on February 01, 2018 at 19:09 Board Certified Radiologist. This report was verified electronically.
[2018-02-01] MEDS ORDERED: IOHEXOL 350 MG/ML 10 ML VIAL (for RAD DIAG) IVCONTRAST ONE (19:27)
--- NOTE | 2018-02-01 19:37 | RADRPT ---
EXAM DATE/TIME: 02/01/2018 19:12 [facility] COMPARISON: No previous studies available for comparison. INDICATIONS : Left lower quadrant pain. IV CONTRAST: 95 cc Omnipaque 350 (iohexol) IV ORAL CONTRAST: Prescribed oral contrast ingested. RADIATION DOSE: 8.08 CTDIvol (mGy) MEDICAL HISTORY : Alzheimer's Hypertension. Carcinoma, breast.Diabetes SURGICAL HISTORY : Appendectomy. Cholecystectomy.Hysterectomy. ENCOUNTER: Initial ACUITY: 1 day PAIN SCALE: 5/10 LOCATION: Left lower quadrant TECHNIQUE: Volumetric scanning of the abdomen and pelvis was performed. Using automated exposure control and ad justment of the mA and/or kV according to patient size, radiation dose was kept as low as reasonably achievable to obtain optimal diagnostic quality images. DICOM format image data is available electro nically for review and comparison. FINDINGS: There is patchy infiltrate in the right middle lobe. There is a large hiatal hernia. The osseous stru ctures are intact. No pleural or pericardial effusions are seen. The patient is status post cholecyst ectomy, hysterectomy and appendectomy. Liver, spleen, pancreas, adrenals are unremarkable. There are bilateral parapelvic renal cysts noted. Atherosclerotic calcifications of the aorta and iliac vessels are present. Urinary bladder is unremarkable. A subtle amount of free fluid is noted in the pelvis. Large bowel and distal small bowel loops are relatively decompressed. There is a transition point wit h mild caliber change involving the distal ileum on image 47 in the anterior midabdomen, proximal to this there are multiple dilated loops of small intestine. At least partial obstruction can have this appearance. CONCLUSION: Abnormal dilated loops of small bowel with relatively decompressed distal small bowel and colon luba cteristic of at least partial small bowel obstruction. Ronny Hartman MD on February 01, 2018 at 19:32 Board Certified Radiologist. This report was verified electronically.
[2018-02-01 20:24] VITALS: BP 158/68; PULSE 86; RESP 20; O2SAT 98
[2018-02-01 20:27] LABS: BILIRUBIN, URINE NEG (NEG); BLOOD, URINE NEG (NEG); GLUCOSE,URINE NEG (NEG); KETONE, URINE NEG (NEG); MUCUS URINE FEW /lpf (OCC); NITRITE,URINE NEG (NEG); PH, URINE 7.5 (5.0-8.5); SQUAMOUS EPITHELIAL CELL URINE 19 /hpf (0-5); URINE COLOR LIGHT-YELLOW (YELLW/STRAW); URINE LEUKOCYTE ESTERASE SMALL (NEG)
[2018-02-01] MEDS: SODIUM CHLOR 0.9% 1000 ML INJ 1,000 ML IV SCH (20:37)
[2018-02-01] MEDS ORDERED: ONDANSETRON HCL 4 MG/2 ML VIAL IVP PRN (20:45)
[2018-02-01] MEDS ORDERED: SODIUM CHLORIDE 0.9% FLUSH 10 ML FLUSH IV FLUSH PRN (20:45)
[2018-02-01] MEDS ORDERED: NALOXONE HCL 0.4 MG/ML AMP IV PUSH PRN (20:45)
[2018-02-01] MEDS ORDERED: ENALAPRILAT 1.25 MG/ML VIAL IV PUSH PRN (21:00)
[2018-02-01] MEDS: SODIUM CHLORIDE 0.9% FLUSH 10 ML FLUSH IV FLUSH SCH (21:00)
--- NOTE | 2018-02-01 21:01 | HHI.HP ---
HPI Service [facility] Primary Care Physician Unknown Admission Diagnosis SBO Diagnoses: Travel History International Travel<30 Days: No Contact w/Intl Traveler <30 Da: No Traveled to Known Affected Are: No History of Present Illness 82-year-old female with a past medical history significant for dementia, hypertension and chronic headaches presents to the emergency department for evaluation of emesis. The patient is demented and the history was obtained from her who reports that starting last night the patient began vomiting. She vomited every time that she ingested food or liquid. He describes some of the emesis as dark brown in color. Hemoccult of both emesis and stool was negative in the emergency department. The patient's reports that she was eating cake and chocolate and other dark colored foods. The patient denies any pain however review of systems is limited secondary to patient's clinical condition. No fever/chills. No chest pain or shortness of breath. Patient denies abdominal pain but states her belly is larger than usual. No weakness or lateralizing signs/symptoms. Review of Systems ROS Limitations: Clinical Condition Except as stated in HPI: all other systems reviewed are Neg Past Family Social History Past Medical History Hypertension Dementia History of breast cancer Past Surgical History Lumpectomy Cholecystectomy Reported Medications Reported Meds & Active Scripts Active Ibuprofen 400 Mg Tab 400 Mg PO Q8H PRN Reported Multiple Vitamin 1 Tab 1 Tab PO DAILY Amlodipine (Amlodipine Besylate) 2.5 Mg Tab 2.5 Mg PO DAILY Epitol (Carbamazepine) 200 Mg Tab 200 Mg PO BID Zantac (Ranitidine HCl) 150 Mg Tab 150 Mg PO DAILY Xanax (Alprazolam) 0.5 Mg Tab 0.5 Mg PO Q8H PRN Aspirin 81 Mg Chew 81 Mg CHEW DAILY Donepezil 5 Mg Tab 5 Mg PO HS Memantine 10 Mg Tab 10 Mg PO DAILY Losartan (Losartan Potassium) 25 Mg Tab 25 Mg PO DAILY Allergies: Coded Allergies: Influenza Virus Vaccines (Unverified Allergy, Severe, 02/01/18) nefazodone (Unverified Allergy, Severe, SOB, 4/1/18) Family History Mother with CAD Social History Negative for alcohol, tobacco or illicit drugs. Physical Exam Vital Signs Vital Signs Date Time Temp Pulse Resp B/P (MAP) Pulse Ox O2 Delivery O2 Flow Rate FiO2 02/01/18 20:24 86 20 158/68 (98) 98 Room Air 02/01/18 18:51 95 16 97 Room Air 02/01/18 17:43 97.6 99 17 188/88 (121) 97 Physical Exam GENERAL: Elderly, female lying in bed SKIN: No rashes, ecchymoses or lesions. Cool and dry. HEAD: Atraumatic. Normocephalic. No temporal or scalp tenderness. EYES: Pupils equal round and reactive. Extraocular motions intact. No scleral icterus. No injection or drainage. ENT: Nose without bleeding, purulent drainage or septal hematoma. Throat without erythema, tonsillar hypertrophy or exudate. Uvula midline. Airway patent. NECK: Trachea midline. No JVD or lymphadenopathy. Supple, nontender, no meningeal signs. CARDIOVASCULAR: Regular rate and rhythm without murmurs, gallops, or rubs. RESPIRATORY: Clear to auscultation. Breath sounds equal bilaterally. No wheezes , rales, or rhonchi. GASTROINTESTINAL: Abdomen distended. Nontender to palpation. Absent bowel sounds. No hepato-splenomegaly, or palpable masses. No guarding. MUSCULOSKELETAL: Extremities without clubbing, cyanosis, or edema. No joint tenderness, effusion, or edema noted. No calf tenderness. NEUROLOGICAL: Awake and alert. Cranial nerves II through XII intact. Motor and sensory grossly within normal limits. Normal speech. Laboratory Laboratory Tests Test 02/01/18 18:11 02/01/18 20:10 White Blood Count 14.8 Red Blood Count 4.69 Hemoglobin 14.5 Hematocrit 43.5 Mean Corpuscular Volume 92.6 Mean Corpuscular Hemoglobin 30.8 Mean Corpuscular Hemoglobin Concent 33.3 Red Cell Distribution Width 13.2 Platelet Count 303 Mean Platelet Volume 7.7 Neutrophils (%) (Auto) 86.4 Lymphocytes (%) (Auto) 5.4 Monocytes (%) (Auto) 7.4 Eosinophils (%) (Auto) 0.5 Basophils (%) (Auto) 0.3 Neutrophils # (Auto) 12.8 Lymphocytes # (Auto) 0.8 Monocytes # (Auto) 1.1 Eosinophils # (Auto) 0.1 Basophils # (Auto) 0.0 CBC Comment DIFF FINAL Differential Comment Prothrombin Time 9.9 Prothromb Time International Ratio 1.0 Activated Partial Thromboplast Time 24.6 Blood Urea Nitrogen 13 Creatinine 1.07 Random Glucose 141 Total Protein 8.5 Albumin 3.8 Calcium Level 9.4 Alkaline Phosphatase 142 Aspartate Amino Transf (AST/SGOT) 31 Alanine Aminotransferase (ALT/SGPT) 46 Total Bilirubin 0.4 Sodium Level 138 Potassium Level 3.9 Chloride Level 101 Carbon Dioxide Level 27.2 Anion Gap 10 Estimat Glomerular Filtration Rate 49 Lipase 417 Urine Color LIGHT-YELLOW Urine Turbidity HAZY Urine pH 7.5 Urine Specific [place] 1.007 Urine Protein NEG Urine Glucose (UA) NEG Urine Ketones NEG Urine Occult Blood NEG Urine Nitrite NEG Urine Bilirubin NEG Urine Urobilinogen LESS THAN 2.0 Urine Leukocyte Esterase SMALL Urine RBC 2 Urine WBC 5 Urine Squamous Epithelial Cells 19 Urine Mucus FEW Microscopic Urinalysis Comment CULT NOT INDICATED Date/Time Source Procedure Growth Status 02/01/18 19:55 Nasal Aspirate Influenza Types A,B Antigen (LEVY) Pending Received Result Diagram: 02/01/18 1811 02/01/18 1811 Caprini VTE Risk Assessment Caprini VTE Risk Assessment: Mod/High Risk (score >= 2) Caprini Risk Assessment Model Point Value = 1 Point Value = 2 Point Value = 3 Point Value = 5 Age 41-60 Minor surgery BMI > 25 kg/m2 Swollen legs Varicose veins or History of unexplained or recurrent spontaneous Oral contraceptives or hormone replacement Sepsis (< 1 month) Serious lung disease, including pneumonia (< 1 month) Abnormal pulmonary function Acute myocardial infarction Congestive heart failure (< 1 month) History of inflammatory bowel disease Medical patient at bed rest Age 61-74 Arthroscopic surgery Major open surgery (> 45 min) Laparoscopic surgery (> 45 min) Malignancy Confined to bed (> 72 hours) Immobilizing plaster cast Central venous access Age >= 75 History of VTE Family history of VTE Factor V Leiden Prothrombin [id number] Lupus anticoagulant Anticardiolipin antibodies Elevated serum homocysteine Heparin-induced thrombocytopenia Other congenital or acquired thrombophilia Stroke (< 1 month) Elective arthroplasty Hip, pelvis, or leg fracture Acute spinal cord injury (< 1 month) Prophylaxis Regimen Total Risk Factor Score Risk Level Prophylaxis Regimen 0-1 Low Early ambulation 2 Moderate Order ONE of the following: *Sequential Compression Device (SCD) *Heparin 5000 units SQ BID 3-4 Higher Order ONE of the following medications: *Heparin 5000 units SQ TID *Enoxaparin/Lovenox 40 mg SQ daily (WT < 150 kg, CrCl > 30 mL/min) *Enoxaparin/Lovenox 30 mg SQ daily (WT < 150 kg, CrCl > 10-29 mL/min) *Enoxaparin/Lovenox 30 mg SQ BID (WT < 150 kg, CrCl > 30 mL/min) AND/OR *Sequential Compression Device (SCD) 5 or more Highest Order ONE of the following medications: *Heparin 5000 units SQ TID (Preferred with Epidurals) *Enoxaparin/Lovenox 40 mg SQ daily (WT < 150 kg, CrCl > 30 mL/min) *Enoxaparin/Lovenox 30 mg SQ daily (WT < 150 kg, CrCl > 10-29 mL/min) *Enoxaparin/Lovenox 30 mg SQ BID (WT < 150 kg, CrCl > 30 mL/min) AND *Sequential Compression Device (SCD) Assessment and Plan Assessment and Plan Assessment/plan: 1. Small bowel obstruction CT of the abdomen/pelvis shows abnormal dilated loops of small bowel with relatively decompressed distal small bowel and colon characteristic of at least partial small bowel obstruction Nothing by mouth IV fluids General surgery consulted, appreciate recommendations 2. Hypertension Holding oral medications at this time Enalapril when necessary 3. Dementia Restarted home medications once tolerating by mouth 4. Elevated lipase Lipase 417 Patient without abdominal pain or signs of pancreatitis on CT scan Plan as above FEN Nothing by mouth NS at 70 cc/hr Electrolytes: monitor and replete prn Holding pharmacologic anticoagulation until patient cleared from a general surgery standpoint Physician Certification 2 Midnight Certification Type: Admission for Inpatient Services Order for Inpatient Services The services are ordered in accordance with Medicare regulations or non- Medicare payer requirements, as applicable. In the case of services not specified as inpatient-only, they are appropriately provided as inpatient services in accordance with the 2-midnight benchmark. Estimated LOS (days): 2 2 days is the estimated time the patient will need to remain in the hospital, assuming treatment plan goals are met and no additional complications. Post-Hospital Plan: Not yet determined Azeb Gautam MD Feb 01, 2018 21:01
[2018-02-01 21:09] VITALS: BP 110/54; PULSE 96; RESP 15; TEMP 98; O2SAT 95
[2018-02-02] VITALS: BP 148/72; PULSE 99; RESP 15; TEMP 99.1; O2SAT 94
[2018-02-02 04:00] VITALS: BP 145/73; PULSE 94; RESP 15; TEMP 98.5; O2SAT 96
[2018-02-02 07:26] LABS: AUTOMATED NEUTROPHIL # 7.7 TH/MM3 (1.8-7.7); BASOPHIL % 0.3 % (0.0-2.0); EOSINOPHIL # 0.1 TH/MM3 (0-0.4); EOSINOPHIL % 1.1 % (0.0-4.0); HEMATOCRIT 36.8 % (35.0-46.0); HEMOGLOBIN 12.2 GM/DL (11.6-15.3); LYMPH % 12.8 % (9.0-44.0); LYMPHOCYTE # 1.3 TH/MM3 (1.0-4.8); MEAN CELL VOLUME 92.2 FL (80.0-100.0); MEAN CORPUSCULAR HEMOGLOBIN 30.6 PG (27.0-34.0); MEAN CORPUSCULAR HGB CONC 33.2 % (32.0-36.0); MEAN PLATELET VOLUME 7.8 FL (7.0-11.0); MONO % 7.9 % (0.0-8.0); MONOCYTE # 0.8 TH/MM3 (0-0.9); NEUT % 77.9 % (16.0-70.0); PLATELET COUNT 258 TH/MM3 (150-450); RED BLOOD COUNT 3.99 MIL/MM3 (4.00-5.30); RED CELL DISTRIBUTION WIDTH 12.9 % (11.6-17.2); WHITE BLOOD COUNT 9.9 TH/MM3 (4.0-11.0)
[2018-02-02 07:47] LABS: ALBUMIN 2.8 GM/DL (3.4-5.0); AST (GOT) 23 U/L (15-37); BLOOD UREA NITROGEN 16 MG/DL (7-18); CALCIUM 8.4 MG/DL (8.5-10.1); CHLORIDE 107 MEQ/L (98-107); CREATININE 0.95 MG/DL (0.50-1.00); GLOMERULAR FILTRATION RATE 56 ML/MIN (>89); GLUCOSE,RANDOM 112 MG/DL (74-106); SODIUM (NA) 141 MEQ/L (136-145)
[2018-02-02 07:48] LABS: ALKALINE PHOSPHATASE 107 U/L (45-117); ALT (GPT) 34 U/L (10-53); TOTAL BILIRUBIN ADULT 0.5 MG/DL (0.2-1.0); TOTAL PROTEIN 6.6 GM/DL (6.4-8.2)
[2018-02-02 08:00] VITALS: BP 121/72; PULSE 87; RESP 20; TEMP 96.8; O2SAT 95
[2018-02-02] MEDS ORDERED: FAMOTIDINE 20 MG/2 ML VIAL IV PUSH SCH (08:00)
[2018-02-02] MEDS: SODIUM CHLORIDE 0.9% FLUSH 10 ML FLUSH IV FLUSH SCH ×2 (08:37→20:27)
--- NOTE | 2018-02-02 08:52 | PD.CONS ---
cc: Rickey Hernandez MD [facility] Service CONSULTATION NOTE FOR SURGICAL ATTENDING, DR. RICKEY HERNANDEZ General Surgery Consult Requested By Dr. Gautam Reason for Consult Small bowel obstruction Primary Care Physician Unknown History of Present Illness This is an 82 year old female with a past medical history of dementia, breast cancer s/p lumpectomy, and hypertension who presented to the ED with complaints of abdominal pain and not able to anything by mouth. The patient is a relatively poor historian and her is able to supplement much of her history and history of present illness. He denies any recent sick contacts. She developed these symptoms on Friday evening. A CT abdomen/pelvis was obtained which shows a abnormally dilated loop of small bowel with a decompressed distal small bowel and colon suspicious for a partial small bowel obstruction. She does have an elevated WBC on admission and an elevated lipase as well. The patient is unsure of her last bowel movement. A General Surgery consultation has been requested. Review of Systems Constitutional: COMPLAINS OF: Change in appetite, DENIES: Fatigue, Weight loss Endocrine: DENIES: Polydipsia, Polyuria, Polyphagia Eyes: DENIES: Diplopia, Eye pain Ears, nose, mouth, throat: DENIES: Hearing loss Respiratory: DENIES: Cough Cardiovascular: DENIES: Chest pain Gastrointestinal: COMPLAINS OF: Abdominal pain, Nausea, Vomiting Genitourinary: DENIES: Urinary frequency Musculoskeletal: DENIES: Joint pain Integumentary: DENIES: Abnormal pigmentation Hematologic/lymphatic: DENIES: Bruising Immunologic/allergic: DENIES: Eczema Neurologic: DENIES: Abnormal gait, Headache Psychiatric: DENIES: Confusion, Mood changes, Depression Past Family Social History Past Medical History Dementia Hypertension Breast Cancer Past Surgical History Cholecystectomy Lumpectomy Reported Medications Donepezil Amlodipine Losartan Aspirin Epitol Xanax Memantine Zantac Multivitamin Allergies: Coded Allergies: Influenza Virus Vaccines (Unverified Allergy, Severe, 02/01/18) nefazodone (Unverified Allergy, Severe, SOB, 02/01/18) Active Ordered Medications Current Medications Medications (Trade) Dose Ordered Sig/Tigre Route Start Time Stop Time Status Last Admin (NS Flush) 2 ml UNSCH PRN IVF 02/01/18 18:15 Sodium Chloride 1,000 ml @ 70 mls/hr [id number] IV 02/01/18 20:37 02/01/18 20:37 (NS Flush) 2 ml UNSCH PRN IV FLUSH 02/01/18 20:45 (NS Flush) 2 ml BID IV FLUSH 02/01/18 21:00 (Zofran Inj) 4 mg Q6H PRN IVP 02/01/18 20:45 (Narcan Inj) 0.4 mg UNSCH PRN IV PUSH 02/01/18 20:45 (Pepcid Inj) 20 mg Q12H IV PUSH 02/02/18 08:00 (Vasotec Inj) 1.25 mg Q6H PRN IV PUSH 02/01/18 21:00 Family History Non contributory Social History Denies tobacco use and ETOH use Lives with her . She is able to ambulate independently. Physical Exam Vital Signs Vital Signs Date Time Temp Pulse Resp B/P (MAP) Pulse Ox O2 Delivery O2 Flow Rate FiO2 02/02/18 04:00 98.5 94 15 145/73 (97) 96 02/02/18 00:00 99.1 99 15 148/72 (97) 94 02/01/18 21:09 98.0 96 15 110/54 (72) 95 02/01/18 20:24 86 20 158/68 (98) 98 Room Air 02/01/18 18:51 95 16 97 Room Air 02/01/18 17:43 97.6 99 17 188/88 (121) 97 Physical Exam GENERAL: Very pleasant 82 year old female resting in bed in no acute distress. SKIN: Warm and dry. HEAD: Atraumatic. Normocephalic. EYES: Pupils equal and round. No scleral icterus. No injection or drainage. ENT: No nasal bleeding or discharge. Mucous membranes pink and moist. NECK: Trachea midline. CARDIOVASCULAR: Regular rate and rhythm. RESPIRATORY: No accessory muscle use. Clear to auscultation. Breath sounds equal bilaterally. GASTROINTESTINAL: Abdomen soft, minimally distended; mild tenderness in LLQ and RLQ with palpation. Well healed scar noted on abdomen. MUSCULOSKELETAL: Extremities without clubbing, cyanosis, or edema. No obvious deformities. SCDs in place. NEUROLOGICAL: Awake and alert. No obvious cranial nerve deficits. Motor grossly within normal limits. Five out of 5 muscle strength in the arms and legs. Normal speech. PSYCHIATRIC: Appropriate mood; pleasantly confused. Laboratory Laboratory Tests Test 02/01/18 18:11 02/01/18 20:10 02/02/18 06:37 White Blood Count 14.8 9.9 Red Blood Count 4.69 3.99 Hemoglobin 14.5 12.2 Hematocrit 43.5 36.8 Mean Corpuscular Volume 92.6 92.2 Mean Corpuscular Hemoglobin 30.8 30.6 Mean Corpuscular Hemoglobin Concent 33.3 33.2 Red Cell Distribution Width 13.2 12.9 Platelet Count 303 258 Mean Platelet Volume 7.7 7.8 Neutrophils (%) (Auto) 86.4 77.9 Lymphocytes (%) (Auto) 5.4 12.8 Monocytes (%) (Auto) 7.4 7.9 Eosinophils (%) (Auto) 0.5 1.1 Basophils (%) (Auto) 0.3 0.3 Neutrophils # (Auto) 12.8 7.7 Lymphocytes # (Auto) 0.8 1.3 Monocytes # (Auto) 1.1 0.8 Eosinophils # (Auto) 0.1 0.1 Basophils # (Auto) 0.0 0.0 CBC Comment DIFF FINAL DIFF FINAL Differential Comment Prothrombin Time 9.9 Prothromb Time International Ratio 1.0 Activated Partial Thromboplast Time 24.6 Blood Urea Nitrogen 13 16 Creatinine 1.07 0.95 Random Glucose 141 112 Total Protein 8.5 6.6 Albumin 3.8 2.8 Calcium Level 9.4 8.4 Alkaline Phosphatase 142 107 Aspartate Amino Transf (AST/SGOT) 31 23 Alanine Aminotransferase (ALT/SGPT) 46 34 Total Bilirubin 0.4 0.5 Sodium Level 138 141 Potassium Level 3.9 4.0 Chloride Level 101 107 Carbon Dioxide Level 27.2 26.0 Anion Gap 10 8 Estimat Glomerular Filtration Rate 49 56 Lipase 417 Urine Color LIGHT-YELLOW Urine Turbidity HAZY Urine pH 7.5 Urine Specific [place] 1.007 Urine Protein NEG Urine Glucose (UA) NEG Urine Ketones NEG Urine Occult Blood NEG Urine Nitrite NEG Urine Bilirubin NEG Urine Urobilinogen LESS THAN 2.0 Urine Leukocyte Esterase SMALL Urine RBC 2 Urine WBC 5 Urine Squamous Epithelial Cells 19 Urine Mucus FEW Microscopic Urinalysis Comment CULT NOT INDICATED Date/Time Source Procedure Growth Status 02/01/18 19:55 Nasal Aspirate Influenza Types A,B Antigen (LEVY) - Final NEGATIVE FOR FLU A AND B ANTIGEN.... Complete Result Diagram: 02/02/18 0637 02/02/18 0637 Imaging Last 48 hours Impressions Abdomen/Pelvis CT 02/01/18 1809 Signed Impressions: Service Date/Time: Thursday, February 01, 2018 19:12 - CONCLUSION: Abnormal dilated loops of small bowel with relatively decompressed distal small bowel and colon characteristic of at least partial small bowel obstruction. Ronny Hartman MD Chest X-Ray 02/01/18 0000 Signed Impressions: Service Date/Time: Thursday, February 01, 2018 18:52 - CONCLUSION: No acute disease. Ronny Hartman MD Assessment and Plan Problem List: (1) Ileus ICD Codes: K56.7 - Ileus, unspecified Status: Acute (2) Vomiting ICD Codes: R11.10 - Vomiting, unspecified Status: Acute (3) Elevated lipase ICD Codes: R74.8 - Abnormal levels of other serum enzymes Status: Acute (4) Abdominal pain ICD Codes: R10.9 - Unspecified abdominal pain Status: Acute (5) Dementia ICD Codes: F03.90 - Unspecified dementia without behavioral disturbance Status: Chronic Assessment and Plan 82 year old female with abdominal pain; nausea; vomiting; CT abdomen/pelvis with dilated loops of small bowel -Repeat KUB at bedside today shows great improvement -Exam appears improved -IVF -Clear liquids -Will continue non-operative treatment -Thank you for this consult; We will continue to follow Discussed Condition With Dr. Hernandez Mrs. Young and at bedside Attending Statement CONSULTATION NOTE FOR SURGICAL ATTENDING, DR. RICKEY HERNANDEZ Patient seen walking the hallways with physical therapy Discussed with at bedside Reviewed KUB and CT scan Ileus appears to be resolving I agree with above assessment and plan. The exam, history, and the medical decision-making described in the above note were completed with the assistance of the mid-level provider. I reviewed and agree with the findings presented. I attest that I had a [id number] encounter with the patient on the same day, and personally performed and documented my assessment and findings in the medical record. The following services were provided during this hospital visit: Chart data review, vital sign assessments/reviewing monitor data Review of consultations notes if present. Medication orders/review and/or management Ordering and/or reviewing lab tests Ordering and/or interpreting/reviewing x-rays and/or diagnostic studies Care of the patient and discussion of the patient with the care team Documentation time To help prompt me to consider important information that might be impacting today's encounter and assessment, Information from prior notes written by myself or my colleagues may have been "brought forward/copy and pasted" into today's note. Problem Qualifiers (1) Vomiting: Qualified Codes: R11.14 - Bilious vomiting (2) Abdominal pain: Qualified Codes: R10.84 - Generalized abdominal pain Madison Clarke/First Lydia MORALES Feb 02, 2018 08:51 Rickey Hernandez MD Feb 03, 2018 07:54
--- NOTE | 2018-02-02 09:25 | RADRPT ---
EXAM DATE/TIME: 02/02/2018 08:14 [place] COMPARISON: CT ABDOMEN & PELVIS W CONTRAST, February 01, 2018, 19:12. INDICATIONS : Evaluate for small bowel obstruction, nausea, vomiting. MEDICAL HISTORY : Hypertension. Carcinoma, breast. Diabetes mellitus type II. Alzheimer's. SURGICAL HISTORY : Appendectomy. Cholecystectomy. Hysterectomy. ENCOUNTER: Subsequent ACUITY: 2 days PAIN SCORE: 0/10 LOCATION: Abdomen. FINDINGS: No gas dilated loops of small or large bowel seen. The dilated loop seen on yesterday's CT scan were predominately fluid filled. Moderate curvature of the lumbar spine convex to the right. Contrast i n the urinary bladder from prior CT. No suspicious calcifications. No evidence of hydronephrosis. CONCLUSION: No gas distended loops of small or large bowel. Seamus Pollack MD on February 02, 2018 at 9:19 Board Certified Radiologist. This report was verified electronically.
[2018-02-02] MEDS: SODIUM CHLOR 0.9% 1000 ML INJ 1,000 ML IV SCH (10:44)
[2018-02-02 12:00] VITALS: BP 148/79; PULSE 92; RESP 20; TEMP 97.8; O2SAT 97
--- NOTE | 2018-02-02 13:02 | HHI.PR ---
Subjective Remarks atient seen with daughter in law at bedside baseline- per family- dementia now no complains- no episoes of nausea or vomiting states she is hungry + flatus Objective Vitals Vital Signs Date Time Temp Pulse Resp B/P (MAP) Pulse Ox O2 Delivery O2 Flow Rate FiO2 02/02/18 08:00 96.8 87 20 121/72 (88) 95 02/02/18 04:00 98.5 94 15 145/73 (97) 96 02/02/18 00:00 99.1 99 15 148/72 (97) 94 02/01/18 21:09 98.0 96 15 110/54 (72) 95 02/01/18 20:24 86 20 158/68 (98) 98 Room Air 02/01/18 18:51 95 16 97 Room Air 02/01/18 17:43 97.6 99 17 188/88 (121) 97 I/O 02/01/18 02/01/18 02/01/18 02/02/18 02/02/18 02/02/18 06:59 14:59 22:59 06:59 14:59 22:59 Intake Total 0 ml Balance 0 ml Intake Oral 0 ml # Voids 1 # Bowel Movements 0 Result Diagram: 02/02/18 0637 02/02/18 0637 Imaging Last Impressions Abdomen X-Ray 02/02/18 0000 Signed Impressions: Service Date/Time: Friday, February 02, 2018 08:14 - CONCLUSION: No gas distended loops of small or large bowel. Seamus Pollack MD Abdomen/Pelvis CT 02/01/18 1809 Signed Impressions: Service Date/Time: Thursday, February 01, 2018 19:12 - CONCLUSION: Abnormal dilated loops of small bowel with relatively decompressed distal small bowel and colon characteristic of at least partial small bowel obstruction. Ronny Hartman MD Chest X-Ray 02/01/18 0000 Signed Impressions: Service Date/Time: Thursday, February 01, 2018 18:52 - CONCLUSION: No acute disease. Ronny Hartman MD Objective Remarks awake and alert, ambulating independently, pleasantly confused anicteric lungs- no rales regular rhythm abdomen- soft, good bowel sounds, nontender extremities no edema A/P Assessment and Plan 82 years old female 1. Small bowel obstruction- appears resolved CT of the abdomen/pelvis shows abnormal dilated loops of small bowel with relatively decompressed distal small bowel and colon characteristic of at least partial small bowel obstruction IV fluids start clears and advance as tolerated General surgery ff 2. Hypertension restart po meds 3. Dementia- per family "big time"- pleasantly confused -very agitated and restless- not sleeping home medications - daughter will call us with medications- some changes made- was just given script for Seroquel and instruct to DC xanax- will let us know exact dose get Psychiatry consult for recommendation- management 4. Elevated lipase- patient looks comfortalbe, no abdominal pain or tenderness Lipase 417- recheck tdoay Patient without abdominal pain or signs of pancreatitis on CT scan start clears and advance if tolerated NS at 70 cc/hr Electrolytes: monitor and replete prn Holding pharmacologic anticoagulation until patient cleared from a general surgery standpoint -patient up and ambulating on H2 mina IV q 12 DC in am if continues to do well Dorina Pizarro MD Feb 02, 2018 13:02
[2018-02-02] MEDS ORDERED: ALPRAZolam 0.5 MG TAB PO PRN (13:15)
[2018-02-02] MEDS ORDERED: PILL SPLITTER OTHER PRN (13:30)
[2018-02-02 16:00] VITALS: BP 150/69; PULSE 90; RESP 20; TEMP 98; O2SAT 96
[2018-02-02] MEDS: QUEtiapine FUMARATE 25 MG TAB PO SCH ×2 (17:52→20:16)
[2018-02-02 20:00] VITALS: BP 130/64; PULSE 92; RESP 17; TEMP 97.9; O2SAT 94
[2018-02-02] MEDS: DONEPEZIL HCL 5 MG TAB PO SCH (20:16)
[2018-02-02] MEDS: carBAMazepine 200 MG TAB PO SCH (20:16)
[2018-02-02] MEDS ORDERED: TEMAZEPAM 7.5 MG CAP PO ONE (21:00)
[2018-02-03] VITALS: BP 138/62; PULSE 74; RESP 17; TEMP 98.3; O2SAT 96
[2018-02-03] MEDS: SODIUM CHLOR 0.9% 1000 ML INJ 1,000 ML IV SCH ×2 (01:02→15:20)
[2018-02-03 04:00] VITALS: BP 139/68; PULSE 89; RESP 17; TEMP 99; O2SAT 94
[2018-02-03 08:00] VITALS: BP 145/66; PULSE 88; RESP 20; TEMP 97.6; O2SAT 95
[2018-02-03] MEDS: SODIUM CHLORIDE 0.9% FLUSH 10 ML FLUSH IV FLUSH SCH ×2 (09:00→20:14)
--- NOTE | 2018-02-03 09:12 | HHI.PR ---
Subjective Remarks non complains up and ambulating around no nausea or vomiting, no abdominal pain tolerated po last evening Objective Vitals Vital Signs Date Time Temp Pulse Resp B/P (MAP) Pulse Ox O2 Delivery O2 Flow Rate FiO2 02/03/18 04:00 99.0 89 17 139/68 (91) 94 02/03/18 00:00 98.3 74 17 138/62 (87) 96 02/02/18 20:00 97.9 92 17 130/64 (86) 94 02/02/18 16:00 98.0 90 20 150/69 (96) 96 02/02/18 12:00 97.8 92 20 148/79 (102) 97 I/O 02/02/18 02/02/18 02/02/18 02/03/18 02/03/18 02/03/18 07:00 15:00 23:00 07:00 15:00 23:00 Intake Total 0 ml 240 ml Balance 0 ml 240 ml Intake Oral 0 ml 240 ml # Voids 1 4 1 # Bowel Movements 0 1 Result Diagram: 02/02/18 0637 02/02/18 0637 Imaging Last Impressions Abdomen X-Ray 02/02/18 0000 Signed Impressions: Service Date/Time: Friday, February 02, 2018 08:14 - CONCLUSION: No gas distended loops of small or large bowel. Seamus Pollack MD Abdomen/Pelvis CT 02/01/18 1809 Signed Impressions: Service Date/Time: Thursday, February 01, 2018 19:12 - CONCLUSION: Abnormal dilated loops of small bowel with relatively decompressed distal small bowel and colon characteristic of at least partial small bowel obstruction. Ronny Hartman MD Chest X-Ray 02/01/18 0000 Signed Impressions: Service Date/Time: Thursday, February 01, 2018 18:52 - CONCLUSION: No acute disease. Ronny Hartman MD Objective Remarks awake and alert, ambulating independently, pleasant anicteric lungs- no rales regular rhythm abdomen- soft, good bowel sounds, nontender extremities no edema A/P Assessment and Plan 82 years old female 1. Small bowel obstruction- resolved CT of the abdomen/pelvis shows abnormal dilated loops of small bowel with relatively decompressed distal small bowel and colon characteristic of at least partial small bowel obstruction advance to regular diet 2. Hypertension restart po meds - amlodipine and cozaar 3. Dementia- per family "big time"- slept good last evening home medications - daughter will call us with medications- some changes made- was just given script for Seroquel- started on 25 mg po bid get Psychiatry consult for recommendation- management 4. Elevated lipase- patient looks comfortable, no abdominal pain or tenderness lipase down Patient without abdominal pain or signs of pancreatitis on CT scan Daughter want to speak with CM- arrange for ? SNF with dementia unit or home with home health Daughter worried because Mom is up and about- her Dad is not sleeping caring for her all the time requesting for Hospice evaluation- if candidate for hospice to assist with home health needs Dorina Pizarro MD Feb 03, 2018 09:12
[2018-02-03] MEDS: ASPIRIN 81 MG CHEW TAB CHEW SCH (09:39)
[2018-02-03] MEDS: QUEtiapine FUMARATE 25 MG TAB PO SCH ×2 (09:39→20:14)
[2018-02-03] MEDS: FAMOTIDINE 20 MG TAB PO SCH (09:39)
[2018-02-03] MEDS: carBAMazepine 200 MG TAB PO SCH ×2 (09:39→20:14)
[2018-02-03] MEDS: amLODIPine BESYLATE 5 MG TAB PO SCH (09:39)
[2018-02-03] MEDS: MULTIVITAMIN TAB PO SCH (09:40)
[2018-02-03] MEDS: LOSARTAN 25 MG TAB PO SCH (09:40)
[2018-02-03] MEDS: MEMANTINE HCL 10 MG TAB PO SCH (09:40)
--- NOTE | 2018-02-03 10:08 | HHI.PR ---
cc: Rosario Bal MD Subjective Subjective Notes DAILY PROGRESS NOTE FOR SURGICAL ATTENDING, DR. ROSARIO BAL Family bedside Patient sitting up in chair Reported bowel movement Objective Vitals/I&O Vital Signs Date Time Temp Pulse Resp B/P (MAP) Pulse Ox O2 Delivery O2 Flow Rate FiO2 02/03/18 08:00 97.6 88 20 145/66 (92) 95 02/01/18 20:24 Room Air Labs Laboratory Tests Test 02/01/18 18:11 02/01/18 20:10 02/02/18 06:37 Prothrombin Time 9.9 SEC Prothromb Time International Ratio 1.0 RATIO Activated Partial Thromboplast Time 24.6 SEC Urine Color LIGHT-YELLOW Urine Turbidity HAZY Urine pH 7.5 Urine Specific [place] 1.007 Urine Protein NEG mg/dL Urine Glucose (UA) NEG mg/dL Urine Ketones NEG mg/dL Urine Occult Blood NEG Urine Nitrite NEG Urine Bilirubin NEG Urine Urobilinogen LESS THAN 2.0 MG/DL Urine Leukocyte Esterase SMALL Urine RBC 2 /hpf Urine WBC 5 /hpf Urine Squamous Epithelial Cells 19 /hpf Urine Mucus FEW /lpf Microscopic Urinalysis Comment CULT NOT INDICATED White Blood Count 9.9 TH/MM3 Red Blood Count 3.99 MIL/MM3 Hemoglobin 12.2 GM/DL Hematocrit 36.8 % Mean Corpuscular Volume 92.2 FL Mean Corpuscular Hemoglobin 30.6 PG Mean Corpuscular Hemoglobin Concent 33.2 % Red Cell Distribution Width 12.9 % Platelet Count 258 TH/MM3 Mean Platelet Volume 7.8 FL Neutrophils (%) (Auto) 77.9 % Lymphocytes (%) (Auto) 12.8 % Monocytes (%) (Auto) 7.9 % Eosinophils (%) (Auto) 1.1 % Basophils (%) (Auto) 0.3 % Neutrophils # (Auto) 7.7 TH/MM3 Lymphocytes # (Auto) 1.3 TH/MM3 Monocytes # (Auto) 0.8 TH/MM3 Eosinophils # (Auto) 0.1 TH/MM3 Basophils # (Auto) 0.0 TH/MM3 CBC Comment DIFF FINAL Differential Comment Blood Urea Nitrogen 16 MG/DL Creatinine 0.95 MG/DL Random Glucose 112 MG/DL Total Protein 6.6 GM/DL Albumin 2.8 GM/DL Calcium Level 8.4 MG/DL Alkaline Phosphatase 107 U/L Aspartate Amino Transf (AST/SGOT) 23 U/L Alanine Aminotransferase (ALT/SGPT) 34 U/L Total Bilirubin 0.5 MG/DL Sodium Level 141 MEQ/L Potassium Level 4.0 MEQ/L Chloride Level 107 MEQ/L Carbon Dioxide Level 26.0 MEQ/L Anion Gap 8 MEQ/L Estimat Glomerular Filtration Rate 56 ML/MIN Lipase 170 U/L Radiology Last Impressions Abdomen X-Ray 02/02/18 0000 Signed Impressions: Service Date/Time: Friday, February 02, 2018 08:14 - CONCLUSION: No gas distended loops of small or large bowel. Seamus Pollack MD Abdomen/Pelvis CT 02/01/18 1809 Signed Impressions: Service Date/Time: Thursday, February 01, 2018 19:12 - CONCLUSION: Abnormal dilated loops of small bowel with relatively decompressed distal small bowel and colon characteristic of at least partial small bowel obstruction. Ronny Hartman MD Chest X-Ray 02/01/18 0000 Signed Impressions: Service Date/Time: Thursday, February 01, 2018 18:52 - CONCLUSION: No acute disease. Ronny Hartman MD Cardiovascular: Regular Lungs: Clear Abdomen: Other (soft nontender) Extremities: No edema, Perfused A/P Problem List: (1) Ileus ICD Codes: K56.7 - Ileus, unspecified Status: Resolved (2) Vomiting ICD Codes: R11.10 - Vomiting, unspecified Status: Resolved (3) Elevated lipase ICD Codes: R74.8 - Abnormal levels of other serum enzymes Status: Acute (4) Abdominal pain ICD Codes: R10.9 - Unspecified abdominal pain Status: Resolved (5) Dementia ICD Codes: F03.90 - Unspecified dementia without behavioral disturbance Status: Chronic Assessment and Plan 82-year-old female who came in the hospital with nausea vomiting and CT scanning suggest small bowel obstruction this ileus resolved over time. She did have a slight elevated lipase that appears to be resolving as well Continued to slowly increase diet I suspect her ileus is resolved General surgery sign off please call if needed Attending Statement NOTE FOR SURGICAL ATTENDING, DR. ROSARIO BAL I attest that I had a [id number] encounter with the patient on the same day, and personally performed and documented my assessment and findings in the medical record. The following services were provided during this hospital visit: Chart data review, vital sign assessments/reviewing monitor data Review of consultations notes if present. Medication orders/review and/or management Ordering and/or reviewing lab tests Ordering and/or interpreting/reviewing x-rays and/or diagnostic studies Care of the patient and discussion of the patient with the care team Documentation time To help prompt me to consider important information that might be impacting today's encounter and assessment, information from prior notes written by myself or my colleagues may have been "brought forward/copy and pasted" into today's note. Problem Qualifiers (1) Vomiting: Qualified Codes: R11.14 - Bilious vomiting (2) Abdominal pain: Qualified Codes: R10.84 - Generalized abdominal pain Rosario Bal MD Feb 03, 2018 10:08
[2018-02-03 12:00] VITALS: BP 132/63; PULSE 88; RESP 20; TEMP 98; O2SAT 100
[2018-02-03] MEDS ORDERED: TEMAZEPAM 7.5 MG CAP PO PRN (12:30)
--- NOTE | 2018-02-03 12:30 | PD.PSY.CON ---
Provisional Diagnosis Admission Date Feb 01, 2018 at 19:59 [place] I. Major neurocognitive disorder with behavioral disturbance [place] II. Deferred [place] III. Hypertension, small bowel obstruction History of Present Illness Service Psychiatry Consult Requested By Medical team Reason for Consult Dementia with agitation Primary Care Physician Unknown HPI The patient is a 82-year-old woman, domiciled with her in [facility], mother of 3 kids, with psychiatric history of dementia, no previous psychiatric hospitalizations, no previous suicidal attempts, the patient is in Namenda, Aricept and Xanax for agitation, prescribed by a neurologist, with medical history significant for hypertension and chronic headaches, who presented to the emergency department for evaluation of emesis. The patient is demented and the history was obtained from her who reports that starting last night the patient began vomiting. She vomited every time that she ingested food or liquid. She was admitted due to small bowel obstruction. CT of the abdomen/pelvis shows abnormal dilated loops of small bowel with relatively decompressed distal small bowel and colon characteristic of at least partial small bowel obstruction. Patient was consulted to psychiatry due to periodic agitation and hyperactivity. On psychiatric evaluation today the patient is found along with her Cesar Young. The patient is calm, cooperative, pleasantly confused. Patient reports that she is happy to be here at home with so many friends. The patient is disoriented in time and place. She answers some of my questions, but most of them become confused. She is even unable to repeat for me black car judgment. Unable to list the days of the week. At times does not even recognize the name of her . He denies suicidal and homicidal ideation, she denies visual and auditory hallucinations. As per the patient is at baseline at this moment. He does report that she has episodic agitation especially in the evening, which is sometimes very difficult to control. He reports that he is the game agent of the patient. They do not have any additional help at this moment. The patient had never use any drugs or alcohol in the past. Review of Systems Constitutional: DENIES: Diaphoretic episodes, Fatigue, Fever, Weight gain, Weight loss, Chills, Dizziness, Change in appetite, Night Sweats Endocrine: DENIES: Abnorml menstrual pattern, Heat/cold intolerance, Polydipsia , Polyuria, Polyphagia Eyes: DENIES: Blurred vision, Diplopia, Eye inflammation, Eye pain, Vision loss , Photosensitivity, Double Vision Ears, nose, mouth, throat: DENIES: Tinnitus, Hearing loss, Vertigo, Nasal discharge, Oral lesions, Throat pain, Hoarseness, Ear Pain, Running Nose, Epistaxis, Sinus Pain, Toothache, Odynophagia Respiratory: DENIES: Apneas, Cough, Snoring, Wheezing, Hemoptysis, Sputum production, Shortness of breath Cardiovascular: DENIES: Chest pain, Palpitations, Syncope, Dyspnea on Exertion , PND, Lower Extremity Edema, Orthopnea, Claudication Gastrointestinal: DENIES: Abdominal pain, Black stools, Bloody stools, Constipation, Diarrhea, Nausea, Vomiting, Difficulty Swallowing, Anorexia Genitourinary: DENIES: Abnormal vaginal bleeding, Dysmenorrhea, Dyspareunia, Sexual dysfunction, Urinary frequency, Urinary incontinence, Urgency, Hematuria , Dysuria, Nocturia, Vaginal discharge Musculoskeletal: DENIES: Joint pain, Muscle aches, Stiffness, Joint Swelling, Back pain, Neck pain Integumentary: DENIES: Abnormal pigmentation, Pruritus, Rash, Nail changes, Breast masses, Breast skin changes, Nipple discharge Hematologic/lymphatic: DENIES: Bruising, Lymphadenopathy Immunologic/allergic: DENIES: Eczema, Urticaria Psychiatric: DENIES: Anxiety, Confusion, Mood changes, Depression, Hallucinations, Agitation, Suicidal Ideation, Homicidal Ideation, Delusions Past Family Social History Coded Allergies: Influenza Virus Vaccines (Unverified Allergy, Severe, 02/01/18) nefazodone (Unverified Allergy, Severe, SOB, 02/01/18) Reported Medications Multiple Vitamin (Multiple Vitamin) 1 Tab, 1 TAB PO DAILY for Nutritional Supplement, TAB 0 Refills 12/15/17 Amlodipine (Amlodipine) 2.5 Mg Tab, 2.5 MG PO DAILY for Blood Pressure Management, #30 TAB 0 Refills 12/15/17 Carbamazepine (Epitol) 200 Mg Tab, 200 MG PO BID, #60 TAB 0 Refills 12/15/17 Ranitidine (Zantac) 150 Mg Tab, 150 MG PO DAILY for Reduce Stomach Acid, #30 TAB 0 Refills 06/29/17 Alprazolam (Xanax) 0.5 Mg Tab, 0.5 MG PO Q8H Y for ANXIETY, TAB 0 Refills 06/29/17 Aspirin (Aspirin) 81 Mg Chew, 81 MG CHEW DAILY, TAB 0 Refills 06/29/17 Donepezil (Donepezil) 5 Mg Tab, 5 MG PO HS for Dementia, #30 TAB 0 Refills 06/29/17 Memantine (Memantine) 10 Mg Tab, 10 MG PO DAILY for Alzheimer's Dementia, TAB 0 Refills 06/29/17 Losartan (Losartan) 25 Mg Tab, 25 MG PO DAILY for Blood Pressure Management, # 30 TAB 0 Refills 06/29/17 Discontinued Scripts Ibuprofen (Ibuprofen) 400 Mg Tab, 400 MG PO Q8H Y for PAIN SCALE 1 TO 4, #20 TAB 0 Refills Prov:Rebel Pugh MD 12/15/17 Current Medications Medications (Trade) Dose Ordered Sig/Tigre Route Start Time Stop Time Status Last Admin Sodium Chloride 1,000 ml @ 70 mls/hr [id number] IV 02/01/18 20:37 02/01/18 20:37 (NS Flush) 2 ml UNSCH PRN IV FLUSH 02/01/18 20:45 (NS Flush) 2 ml BID IV FLUSH 02/01/18 21:00 02/03/18 09:00 (Zofran Inj) 4 mg Q6H PRN IVP 02/01/18 20:45 (Narcan Inj) 0.4 mg UNSCH PRN IV PUSH 02/01/18 20:45 (Vasotec Inj) 1.25 mg Q6H PRN IV PUSH 02/01/18 21:00 (Norvasc) 2.5 mg DAILY PO 02/03/18 09:00 02/03/18 09:39 (Aspirin Chew) 81 mg DAILY CHEW 02/03/18 09:00 02/03/18 09:39 (TEGretol) 200 mg BID PO 02/02/18 21:00 02/03/18 09:39 (Aricept) 5 mg HS PO 02/02/18 21:00 02/02/18 20:16 (Cozaar) 25 mg DAILY PO 02/03/18 09:00 02/03/18 09:40 (Namenda) 10 mg DAILY PO 02/03/18 09:00 02/03/18 09:40 (Theragran) 1 tab DAILY PO 02/03/18 09:00 02/03/18 09:40 (Pepcid) 20 mg DAILY PO 02/03/18 09:00 02/03/18 09:39 (Pill Splitter) 1 ea UNSCH PRN OTHER 02/02/18 13:30 (SEROquel) 25 mg BID PO 02/02/18 19:00 02/03/18 09:39 Family Psych History No family psychiatric history Social History Patient was born and raised in [facility], she lives in [facility] with her , she has 3 adult kids, her highest level of education is high Patient's Strengths (min. 2) Family Physical Exam Psychomotor retardation noted, mild bilateral tremor, Vital Signs Vital Signs Date Time Temp Pulse Resp B/P (MAP) Pulse Ox O2 Delivery O2 Flow Rate FiO2 02/03/18 08:00 97.6 88 20 145/66 (92) 95 02/01/18 20:24 Room Air Lab Results Date/Time Source Procedure Growth Status 02/01/18 19:55 Nasal Aspirate Influenza Types A,B Antigen (LEVY) - Final NEGATIVE FOR FLU A AND B ANTIGEN.... Complete Mental Status Examination Appearance: Appropriate Consciousness: Alert Orientation: Person Motor Activity: Normal gait Speech: Hesitant Language: Adequate Fund of Knowledge: Inadequate Attention and Concentration: Adequate Memory: Impaired Mood: Appropriate Affect: Appropriate Thought Process & Associations: Disorganized Thought Content: Bizarre thinking Hallucination Type: None Delusion Type: None Suicidal Ideation: No Suicidal Plan: No Suicidal Intention: No Homicidal Ideation: No Homicidal Plan: No Homicidal Intention: No Insight: Fair Judgment: Impulsive Assessment & Plan Problem List: (1) Dementia ICD Codes: F03.90 - Unspecified dementia without behavioral disturbance Assessment & Plan: On psychiatric evaluation today the patient presents calm, cooperative, pleasantly confused. The patient presents with severe memory deficits, impairment in recent recall, language, recognition, executive function , abstraction which is consistent with severe dementia. She has reportedly been agitated and hyperactive especially in evening hours which could be consistent with delirium superimposed to dementia. I agree with Namenda and Aricept even though this medication has limited function at this level of the dementia, but prefer Seroquel 25 mg twice daily to control behavior and agitation over Xanax which might contribute to follow and also to paradoxical agitation. Patient does not meet criteria for involuntary psychiatric admission at this moment. Extensive support, motivation and psychoeducation given to the patient and family members. Case discussed directly with Dr. Pizarro. Assessment & Plan Estimated LOS: Justo Fine MD Feb 03, 2018 12:29
[2018-02-03 16:00] VITALS: BP 122/57; PULSE 90; RESP 16; TEMP 98; O2SAT 98
[2018-02-03 18:00] VITALS: BP 117/57; PULSE 95; RESP 18; TEMP 97.5; O2SAT 96
[2018-02-03] MEDS: DONEPEZIL HCL 5 MG TAB PO SCH (20:14)
[2018-02-04] VITALS: BP 125/63; PULSE 92; RESP 18; TEMP 99.1; O2SAT 94
[2018-02-04 04:00] VITALS: BP 136/61; PULSE 77; RESP 18; TEMP 97.8; O2SAT 95
[2018-02-04] MEDS: SODIUM CHLOR 0.9% 1000 ML INJ 1,000 ML IV SCH (05:38)
[2018-02-04] MEDS: SODIUM CHLORIDE 0.9% FLUSH 10 ML FLUSH IV FLUSH SCH (07:58)
[2018-02-04] MEDS: LOSARTAN 25 MG TAB PO SCH (07:59)
[2018-02-04] MEDS: FAMOTIDINE 20 MG TAB PO SCH (07:59)
[2018-02-04] MEDS: MEMANTINE HCL 10 MG TAB PO SCH (07:59)
[2018-02-04] MEDS: QUEtiapine FUMARATE 25 MG TAB PO SCH (07:59)
[2018-02-04 08:00] VITALS: BP 167/73; PULSE 87; RESP 16; TEMP 97.6; O2SAT 98
[2018-02-04] MEDS: ASPIRIN 81 MG CHEW TAB CHEW SCH (08:00)
[2018-02-04] MEDS: amLODIPine BESYLATE 5 MG TAB PO SCH (08:00)
[2018-02-04] MEDS: carBAMazepine 200 MG TAB PO SCH (08:00)
[2018-02-04] MEDS: MULTIVITAMIN TAB PO SCH (08:00)
--- NOTE | 2018-02-04 09:40 | HHI.PR ---
Subjective Remarks seen with supportive at bedside slept good last night no complains, no nausea or vomiting, tolerated po breakfast well very interactive- smiling Objective Vitals Vital Signs Date Time Temp Pulse Resp B/P (MAP) Pulse Ox O2 Delivery O2 Flow Rate FiO2 02/04/18 08:00 97.6 87 16 167/73 (104) 98 02/04/18 04:00 97.8 77 18 136/61 (86) 95 02/04/18 00:00 99.1 92 18 125/63 (83) 94 02/03/18 18:00 97.5 95 18 117/57 (77) 96 02/03/18 16:00 98.0 90 16 122/57 (78) 98 02/03/18 12:00 98.0 88 20 132/63 (86) 100 I/O 02/03/18 02/03/18 02/03/18 02/04/18 02/04/18 02/04/18 07:00 15:00 23:00 07:00 15:00 23:00 # Voids 1 3 1 # Bowel Movements 1 Result Diagram: 02/02/18 0637 02/02/18 0637 Imaging Last Impressions Abdomen X-Ray 02/02/18 0000 Signed Impressions: Service Date/Time: Friday, February 02, 2018 08:14 - CONCLUSION: No gas distended loops of small or large bowel. Seamus Pollack MD Abdomen/Pelvis CT 02/01/18 1809 Signed Impressions: Service Date/Time: Thursday, February 01, 2018 19:12 - CONCLUSION: Abnormal dilated loops of small bowel with relatively decompressed distal small bowel and colon characteristic of at least partial small bowel obstruction. Ronny Hartman MD Chest X-Ray 02/01/18 0000 Signed Impressions: Service Date/Time: Thursday, February 01, 2018 18:52 - CONCLUSION: No acute disease. Ronny Hartman MD Objective Remarks awake and alert, ambulating independently, pleasant, oriented to person, identified husand at bedside and interacted appropriately anicteric lungs- no rales regular rhythm abdomen- soft, good bowel sounds, nontender extremities no edema A/P Assessment and Plan 82 years old female 1. Small bowel obstruction- resolved CT of the abdomen/pelvis shows abnormal dilated loops of small bowel with relatively decompressed distal small bowel and colon characteristic of at least partial small bowel obstruction advance to regular diet 2. Hypertension restart po meds - amlodipine and cozaar 3. Dementia- per family "big time"- home medications - daughter will call us with medications- some changes made- was just given script for Seroquel- started on 25 mg po bid appreciate 4. Elevated lipase- resolved. comfortable, no abdominal pain or tenderness lipase down Patient without abdominal pain or signs of pancreatitis on CT scan Daughter worried because Mom is up and about- her Dad is not sleeping caring for her all the time requesting for Hospice evaluation- if candidate for hospice to assist with home health needs DC planning - today- disposition- home with home health oDrina Pizarro MD Feb 04, 2018 09:40
--- NOTE | 2018-02-04 10:36 | HHI.FF ---
Face to Face Verification Diagnosis: (1) SBO (small bowel obstruction) (2) Dementia Home Health Nursing Order: Medical education Signs/symptoms of disease process I have seen patient Vonda Young on 02/04/18. My clinical findings support the need for the requested home health care services because: Ltd mobility - disease progression Need for psychosocial assistance I certify that my clinical findings support that this patient is homebound because: Impaired cognitive ability/safety Need for psychosocial assistance Dorina Pizarro MD Feb 04, 2018 10:36
[2018-02-04] MEDS ORDERED: TEMA7.5C9 PO (10:37)
[2018-02-04] MEDS ORDERED: SERO25TA PO (10:38)
--- NOTE | 2018-02-04 10:39 | HHI.DS ---
Discharge Summary Admission Date Feb 01, 2018 at 19:59 Discharge Date: Feb 04, 2018 Admitting Diagnosis SBO (1) Dementia ICD Code: F03.90 - Unspecified dementia without behavioral disturbance Diagnosis: Principal Status: Acute (2) SBO (small bowel obstruction) ICD Code: K56.609 - Unspecified intestinal obstruction, unspecified as to partial versus complete obstruction Diagnosis: Principal (3) Dementia ICD Code: F03.90 - Unspecified dementia without behavioral disturbance Diagnosis: Secondary Status: Chronic Procedures none Brief History - From Admission 82-year-old female with a past medical history significant for dementia, hypertension and chronic headaches presents to the emergency department for evaluation of emesis. The patient is demented and the history was obtained from her who reports that starting last night the patient began vomiting. She vomited every time that she ingested food or liquid. He describes some of the emesis as dark brown in color. Hemoccult of both emesis and stool was negative in the emergency department. The patient's reports that she was eating cake and chocolate and other dark colored foods. The patient denies any pain however review of systems is limited secondary to patient's clinical condition. No fever/chills. No chest pain or shortness of breath. Patient denies abdominal pain but states her belly is larger than usual. No weakness or lateralizing signs/symptoms. CBC/BMP: 02/02/18 0637 02/02/18 0637 Significant Findings Laboratory Tests Test 02/01/18 18:11 02/01/18 20:10 02/02/18 06:37 White Blood Count 14.8 TH/MM3 (4.0-11.0) Neutrophils (%) (Auto) 86.4 % (16.0-70.0) 77.9 % (16.0-70.0) Lymphocytes (%) (Auto) 5.4 % (9.0-44.0) Neutrophils # (Auto) 12.8 TH/MM3 (1.8-7.7) Lymphocytes # (Auto) 0.8 TH/MM3 (1.0-4.8) Monocytes # (Auto) 1.1 TH/MM3 (0-0.9) Creatinine 1.07 MG/DL (0.50-1.00) Random Glucose 141 MG/DL (74-106) 112 MG/DL (74-106) Total Protein 8.5 GM/DL (6.4-8.2) Alkaline Phosphatase 142 U/L (45-117) Estimat Glomerular Filtration Rate 49 ML/MIN (>89) 56 ML/MIN (>89) Lipase 417 U/L (73-393) Urine Turbidity HAZY (CLEAR) Urine Leukocyte Esterase SMALL (NEG) Urine Mucus FEW /lpf (OCC) Red Blood Count 3.99 MIL/MM3 (4.00-5.30) Albumin 2.8 GM/DL (3.4-5.0) Calcium Level 8.4 MG/DL (8.5-10.1) Imaging Last Impressions Abdomen X-Ray 02/02/18 0000 Signed Impressions: Service Date/Time: Friday, February 02, 2018 08:14 - CONCLUSION: No gas distended loops of small or large bowel. Seamus Pollack MD Abdomen/Pelvis CT 02/01/18 1809 Signed Impressions: Service Date/Time: Thursday, February 01, 2018 19:12 - CONCLUSION: Abnormal dilated loops of small bowel with relatively decompressed distal small bowel and colon characteristic of at least partial small bowel obstruction. Ronny Hartman MD Chest X-Ray 02/01/18 0000 Signed Impressions: Service Date/Time: Thursday, February 01, 2018 18:52 - CONCLUSION: No acute disease. Ronny Hartman MD PE at Discharge awake and alert, ambulating independently, pleasant, oriented to person, identified husand at bedside and interacted appropriately anicteric lungs- no rales regular rhythm abdomen- soft, good bowel sounds, nontender extremities no edema Pt update on day of discharge aweka and alert, no complains tolerating po well gait steady Hospital Course 82 years old female 1. Small bowel obstruction- resolved CT of the abdomen/pelvis shows abnormal dilated loops of small bowel with relatively decompressed distal small bowel and colon characteristic of at least partial small bowel obstruction advance to regular diet 2. Hypertension restart po meds - amlodipine and cozaar 3. Dementia- per family "big time"- home medications - daughter will call us with medications- some changes made- was just given script for Seroquel- started on 25 mg po bid appreciate 4. Elevated lipase- resolved. comfortable, no abdominal pain or tenderness lipase down Patient without abdominal pain or signs of pancreatitis on CT scan Daughter worried because Mom is up and about- her Dad is not sleeping caring for her all the time requesting for Hospice evaluation- if candidate for hospice to assist with home health needs DC today- disposition- home with home health Pt Condition on Discharge: Stable Discharge Disposition: Disch w/ Home Health Serv Discharge Time: <= 30 minutes Discharge Instructions DIET: Follow Instructions for: Heart Healthy Diet Speech Therapy-Diet Recommends: Regular Activities you can perform: Weight Bearing as [place] Activities to Avoid: Strenuous Activity, Driving Follow up Referrals: PCP Follow-up - 3-5 Days with Stephanie Sarmiento New Medications: Quetiapine (Seroquel) 25 Mg Tab 25 MG PO BID for PSYc/dem for 30 Days, #60 TAB Temazepam (Restoril) 7.5 Mg Cap 7.5 MG PO HS PRN for SLEEP for 14 Days, CAP Continued Medications: Amlodipine (Amlodipine) 2.5 Mg Tab 2.5 MG PO DAILY for Blood Pressure Management, #30 TAB 0 Refills Aspirin (Aspirin) 81 Mg Chew 81 MG CHEW DAILY, TAB 0 Refills Carbamazepine (Epitol) 200 Mg Tab 200 MG PO BID, #60 TAB 0 Refills Donepezil (Donepezil) 5 Mg Tab 5 MG PO HS for Dementia, #30 TAB 0 Refills Losartan (Losartan) 25 Mg Tab 25 MG PO DAILY for Blood Pressure Management, #30 TAB 0 Refills Memantine (Memantine) 10 Mg Tab 10 MG PO DAILY for Alzheimer's Dementia, TAB 0 Refills Multiple Vitamin (Multiple Vitamin) 1 Tab 1 TAB PO DAILY for Nutritional Supplement, TAB 0 Refills Ranitidine (Zantac) 150 Mg Tab 150 MG PO DAILY for Reduce Stomach Acid, #30 TAB 0 Refills Discontinued Medications: Alprazolam (Xanax) 0.5 Mg Tab 0.5 MG PO Q8H PRN for ANXIETY, TAB 0 Refills Dorina Pizarro MD Feb 04, 2018 10:39
--- NOTE | 2018-02-04 13:00 | HHI.PR ---
cc: Rickey Hernandez MD Subjective Subjective Notes DAILY PROGRESS NOTE FOR SURGICAL ATTENDING, DR. RICKEY HERNANDEZ Up to chair "One chocolate a day helps!" Very cheerful and happy Likes when her friends come to see her Objective Vitals/I&O Vital Signs Date Time Temp Pulse Resp B/P (MAP) Pulse Ox O2 Delivery O2 Flow Rate FiO2 02/04/18 09:00 Room Air 02/04/18 08:00 97.6 87 16 167/73 (850) 98 Labs Date/Time Source Procedure Growth Status 02/01/18 19:55 Nasal Aspirate Influenza Types A,B Antigen ([facility]) - Final NEGATIVE FOR FLU A AND B ANTIGEN.... Complete Radiology Last Impressions Abdomen X-Ray 02/02/18 0000 Signed Impressions: Service Date/Time: Friday, February 02, 2018 08:14 - CONCLUSION: No gas distended loops of small or large bowel. Seamus Pollack MD Abdomen/Pelvis CT 02/01/18 1809 Signed Impressions: Service Date/Time: Thursday, February 01, 2018 19:12 - CONCLUSION: Abnormal dilated loops of small bowel with relatively decompressed distal small bowel and colon characteristic of at least partial small bowel obstruction. Ronny Hartman MD Chest X-Ray 02/01/18 0000 Signed Impressions: Service Date/Time: Thursday, February 01, 2018 18:52 - CONCLUSION: No acute disease. Ronny Hartman MD Cardiovascular: Regular Lungs: Clear Abdomen: Non-distended, Non-tender Extremities: No edema A/P Problem List: (1) Ileus ICD Codes: K56.7 - Ileus, unspecified Status: Resolved (2) Vomiting ICD Codes: R11.10 - Vomiting, unspecified Status: Resolved (3) Elevated lipase ICD Codes: R74.8 - Abnormal levels of other serum enzymes Status: Acute (4) Abdominal pain ICD Codes: R10.9 - Unspecified abdominal pain Status: Resolved (5) Dementia ICD Codes: F03.90 - Unspecified dementia without behavioral disturbance Status: Chronic Assessment and Plan 82 year old female with CT findings of SBO -Tolerating regular diet -OOB and mobilize -GS clear for DC Attending Statement NOTE FOR SURGICAL ATTENDING, DR. RICKEY HERNANDEZ I agree with above assessment and plan. The exam, history, and the medical decision-making described in the above note were completed with the assistance of the mid-level provider. I reviewed and agree with the findings presented. I attest that I had a [id number] encounter with the patient on the same day, and personally performed and documented my assessment and findings in the medical record. The following services were provided during this hospital visit: Chart data review, vital sign assessments/reviewing monitor data Review of consultations notes if present. Medication orders/review and/or management Ordering and/or reviewing lab tests Ordering and/or interpreting/reviewing x-rays and/or diagnostic studies Care of the patient and discussion of the patient with the care team Documentation time To help prompt me to consider important information that might be impacting today's encounter and assessment, information from prior notes written by myself or my colleagues may have been "brought forward/copy and pasted" into today's note. Problem Qualifiers (1) Vomiting: Qualified Codes: R11.14 - Bilious vomiting (2) Abdominal pain: Qualified Codes: R10.84 - Generalized abdominal pain Madison Clarke/First Lydia MORALES Feb 04, 2018 13:00 Rickey Hernandez MD Feb 04, 2018 17:02
== END 2018-02-04 13:39 | disposition home health service (06) | DRG 389 ==
LOC: NEPE 17:41 → NEDA 19:59 → N04A 20:49
PROVIDERS: ADMIT Internal Medicine; ATTEND Internal Medicine
DX: K56.600 Partial intestinal obstruction, unspecified as to cause (principal); F02.81 Dementia in other diseases classified elsewhere, unspecified severity, with behavioral disturbance; E11.9 Type 2 diabetes mellitus without complications; G30.0 Alzheimer's disease with early onset; I10 Essential (primary) hypertension; D72.829 Elevated white blood cell count, unspecified; E78.00 Pure hypercholesterolemia, unspecified; R74.8 Abnormal levels of other serum enzymes; R51 Headache; M19.90 Unspecified osteoarthritis, unspecified site; Z85.3 Personal history of malignant neoplasm of breast; Z88.7 Allergy status to serum and vaccine; Z92.3 Personal history of irradiation
CPT/HCPCS: 71045; 74018; 74177; 80053; 81001; 83690; 85025; 85610; 85730; 87804; 96374; 96375; C9113; J2405; J7030; Q9967